=== PATIENT | male | born 1945 | race American Indian/Alaskan Native ===

== ENCOUNTER 2016-08-20 12:31 | Inpatient (IN) | payer MEDICARE ==
[2016-08-20 13:34] LABS: Bilirubin,Urine NEG (Negative); Blood,Urine LG (Negative); Ketones,Urine TR mg/dL (Negative); Leukocyte Esterase,Urine NEG (Negative); Mucus,Urine FEW /HPF; Nitrite,Urine NEG (Negative); Urobilinogen,Urine < 2.0 mg/dL (<2.0)
[2016-08-20 13:39] LABS: Basophils % (Auto) 0.3 % (0.0-1.8); Hematocrit 51.4 % (35.5-45.6); Mean Corpuscular HGB Conc 33 % (32-34); Mean Corpuscular Hemoglobin 28 pg (28-32); Mean Corpuscular Volume 83 fl (84-94); Red Blood Count 6.18 M/mm3 (3.65-5.03); Red Cell Distribution Width 15.9 % (13.2-15.2); White Blood Count 10.4 K/mm3 (4.5-11.0)
[2016-08-20 13:49] LABS: Platelet Count 136 K/mm3 (140-440)
[2016-08-20 14:02] LABS: B-Hydroxybutyrate 25.8 mg/dL (0.2-2.8); BUN/Creatinine Ratio 17.22; Calcium 8.7 mg/dL (8.4-10.2); Chloride 88.8 mmol/L (98-107); Potassium 4.8 mmol/L (3.6-5.0)
--- NOTE | 2016-08-20 14:07 | Emergency Department Report ---
HPI - General Chief Complaint: Hyperglycemia Time Seen by Provider: 08/20/16 13:46 - HPI HPI: Chief complaint: Altered mental status HPI: Patient is a 70-year-old male with a history of COPD, hypertension, insulin dependent diabetes was brought in by EMS. EMS was called by the family who stated that the patient has become more somnolent over the last several days and was incontinent of urine today. Patient is on 2 L of nasal cannula O2 at home states he's been using his nebulizer machine. Mode of arrival: [EMS] Source: [Patient] [old chart] and nursing notes Began: Several days ago Duration: Several days Context: Patient with a history of respiratory failure in the past Quality: Denies pain Severity: 0 out of 10 Improved with: Unable to assess Worsened with: Unable to assess Associated signs and symptoms: Patient denies pain, nausea, vomiting. ED Past Medical Hx - Past Medical History Hx Hypertension: Yes Hx Diabetes: Yes Hx Psychiatric Treatment: Yes (Depression) Hx COPD: Yes - Surgical History Additional Surgical History: unknown - Social History Smoking Status: Unknown if ever smoked Substance Use Type: None - Medications Home Medications: Home Medications Medication Instructions Recorded Confirmed Last Taken Type Ipratropium/Albuterol Sulfate 1 ampul IH Q6HRT #100 ampul.neb 01/16/14 08/20/16 Unknown Rx [Duoneb 0.5 mg-3 mg/3 ml Soln] Citalopram [celeXA] 10 mg PO QDAY 08/20/16 08/20/16 Unknown History Linagliptin [Tradjenta] 5 mg PO QDAY 08/20/16 08/20/16 Unknown History Losartan/Hydrochlorothiazide 12.5 - 100 mg PO DAILY 08/20/16 08/20/16 Unknown History [Losartan-Hctz 50-12.5 mg Tab] Potassium Chloride [Klor-Con 10] 10 meq PO DAILY 08/20/16 08/20/16 Unknown History ED Review of Systems ROS: Stated complaint: DIFFICULTY BREATHING Other details as noted in HPI Comment: Unobtainable due to pts medical conditions (altered mental status) Physical Exam - Physical Exam Vital Signs: Vital Signs 08/20/16 08/20/16 08/20/16 06:29 13:06 13:25 Pulse Rate Respiratory Rate Blood Pressure 169/95 115/65 O2 Sat by Pulse 94 Oximetry 08/20/16 13:30 Pulse Rate 109 H Respiratory 20 Rate Blood Pressure 100/70 O2 Sat by Pulse 94 Oximetry Physical Exam: GENERAL: The patient is an obese elderly man who is quite somnolent. Patient can be awakened with vigorous shaking and then answers questions appropriately until he falls back asleep. HEENT: Normocephalic. Atraumatic. Extraocular motions are intact. Patient has moist mucous membranes. NECK: Supple. No meningitic signs are noted. There is no adenopathy noted. CHEST/LUNGS: Diminished. There is no respiratory distress noted. HEART/CARDIOVASCULAR: Regular. There is no tachycardia. There is no gallop rub or murmur. ABDOMEN: Abdomen is soft, nontender. Patient has normal bowel sounds. There is no abdominal distention. SKIN: There is no rash. There is no edema. There is no diaphoresis. NEURO: The patient is lethargic but arousable and oriented to situation and name. The patient is cooperative. The patient moves all extremities. The patient has slow speech. MUSCULOSKELETAL: There is no tenderness or deformity. There is no evidence of acute injury. ED Course Vital Signs 08/20/16 08/20/16 08/20/16 06:29 13:06 13:25 Pulse Rate Respiratory Rate Blood Pressure 169/95 115/65 O2 Sat by Pulse 94 Oximetry 08/20/16 13:30 Pulse Rate 109 H Respiratory 20 Rate Blood Pressure 100/70 O2 Sat by Pulse 94 Oximetry - Reevaluation(s) Reevaluation #1: 08/20/16 14:54 Patient given 2 L of normal saline bolus and 10 units of regular insulin IV. Patient started on high-dose sliding scale insulin in consultation with Dr. Tariq as well as 250 mg of normal saline per hour. ED Medical Decision Making - Lab Data Result diagrams: 08/20/16 13:26 08/20/16 13:26 Laboratory Tests 08/20/16 08/20/16 08/20/16 13:00 13:26 13:32 VBG pH 7.309 L POC Glucose 435 H Ur Specific [place] 1.025 Urine Protein 100 mg/dl Urine Glucose (UA) >=500 Urine Ketones Tr Urine Blood Lg Laboratory Tests 08/20/16 13:26 Ketones 25.8 H ABG shows pH of 7.32 PA CO2 of 41 PaO2 of 69 - EKG Data -: EKG Interpreted by Me EKG shows normal: sinus rhythm Rate: tachycardia (114) - EKG Data When compared to previous EKG there are: previous EKG unavailable Interpretation: other (low-voltage QRS normal except for sinus tach) - Radiology Data interpreted by me: Chest x-ray shows no infiltrate or fluid. Patient is turned and is difficult to evaluate for mediastinal size. Critical care attestation.: If time is entered above; I have spent that time in minutes in the direct care of this critically ill patient, excluding procedure time. ED Disposition Clinical Impression: Hyperglycemia COPD (chronic obstructive pulmonary disease) Qualifiers: COPD type: unspecified COPD Qualified Code(s): J44.9 - Chronic obstructive pulmonary disease, unspecified Disposition: OP ADMITTED IP TO THIS HOSP Is pt being admited?: Yes Does the pt Need Aspirin: Yes Condition: Serious Instructions: Chronic Obstructive Pulmonary Disease (ED) Time of Disposition: 14:53 (admit to the hospitalist)
[2016-08-20] MEDS ORDERED: NACL 0.9% 1000 ML IV ONE ×2 (14:10→14:26)
[2016-08-20] MEDS ORDERED: D50W (25GM) IV PRN ×3 (14:41→19:53)
[2016-08-20] MEDS ORDERED: NACL 0.9% 1000 ML 1,000 ML IV ONE (14:44)
[2016-08-20] MEDS ORDERED: ASPIRIN PO ONE (15:05)
--- NOTE | 2016-08-20 15:10 | Cat Scan Report ---
FINAL REPORT EXAM: CT HEAD/BRAIN WO CON HISTORY: ams TECHNIQUE: CT of the head was performed without intravenous contrast. PRIORS: None. FINDINGS: The ventricles are normal in shape and position. The ventricles are nondilated. No intracranial hemorrhage, mass, mass effect, midline shift or evidence of acute ischemic infarct. The basilar cisterns are patent. Old lacunar infarct in the right logan radiata is seen. Mild areas of low-attenuation are seen in the periventricular and subcortical white matter. The paranasal sinuses are clear. Several scattered nonspecific scalp calcifications are seen. No soft tissue swelling. The calvarium is intact. The orbits are intact. The mastoid air cells are clear. IMPRESSION: 1. No acute intracranial abnormality. 2. 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 3. Mild findings of chronic microvascular ischemic disease.
--- NOTE | 2016-08-20 19:38 | Event Note ---
Date: 08/20/16 See H/p in reports DKA
[2016-08-20] MEDS ORDERED: PERCOCET 5/325 PO PRN (19:39)
[2016-08-20] MEDS ORDERED: DULCOLAX PR PRN (19:39)
[2016-08-20] MEDS ORDERED: MILK OF MAGNESIA PO PRN (19:39)
[2016-08-20] MEDS ORDERED: ZOFRAN IV PRN (19:39)
[2016-08-20] MEDS ORDERED: TYLENOL PO PRN (19:39)
[2016-08-20] MEDS ORDERED: NovoLIN R 100 UNITS in NACL 0.9% 99 ML IV SCH (20:00)
[2016-08-20] MEDS ORDERED: HYDROCHLOROTHIAZIDE PO SCH (20:00)
[2016-08-20] MEDS ORDERED: LOSARTAN PO SCH (20:00)
[2016-08-20] MEDS ORDERED: NON-FORMULARY (Potassium Chloride [Klor-Con 10] 10 MEQ) PO SCH (20:00)
[2016-08-20] MEDS ORDERED: DUONEB 0.5 MG-3 MG/3 ML SOLN IH SCH (20:00)
[2016-08-20] MEDS: DUONEB 0.5 MG-3 MG/3 ML SOLN IH SCH (20:38)
[2016-08-20 21:06] LABS: BUN/Creatinine Ratio 18.66; Calcium 8.5 mg/dL (8.4-10.2); Chloride 95.6 mmol/L (98-107)
[2016-08-20 21:07] LABS: Magnesium 2.1 mg/dL (1.7-2.3); Phosphorous 3.7 mg/dL (2.5-4.5)
[2016-08-20] MEDS ORDERED: NACL 0.9% 1000 ML 1,000 ML ONE (21:25)
[2016-08-20] MEDS: NovoLIN R 100 UNITS in NACL 0.9% 99 ML IV SCH ×2 (22:10→23:16)
[2016-08-20 22:44] LABS: Blood Urea Nitrogen 28 mg/dL (9-20); Calcium 8.4 mg/dL (8.4-10.2); Carbon Dioxide 24 mmol/L (22-30); Chloride 97.7 mmol/L (98-107); Glucose 426 mg/dL (75-100); Sodium 137 mmol/L (137-145)
[2016-08-20 22:49] LABS: Anion Gap 22 mmol/L
[2016-08-20] MEDS: PEPCID IV SCH (22:53)
[2016-08-20] MEDS: celeXA PO SCH (22:58)
[2016-08-21] MEDS: NovoLIN R 100 UNITS in NACL 0.9% 99 ML IV SCH ×7 (00:03→06:04)
[2016-08-21 00:19] LABS: Potassium 6.2 mmol/L (3.6-5.0)
[2016-08-21 01:19] LABS: ISTAT Base Excess -5; ISTAT HCO3 21.1; ISTAT PCO2 41.2 (35-45); ISTAT PH 7.318 (7.35-7.45); ISTAT PO2 69 (80-105); ISTAT SO2 92; ISTAT TCO2 22
[2016-08-21] MEDS: DUONEB 0.5 MG-3 MG/3 ML SOLN IH SCH ×4 (01:22→19:36)
[2016-08-21] MEDS: NACL 0.45% 1000 ML 1,000 ML IV SCH (02:24)
[2016-08-21 02:26] LABS: Blood Urea Nitrogen 26 mg/dL (9-20); Calcium 8.6 mg/dL (8.4-10.2); Carbon Dioxide 20 mmol/L (22-30); Chloride 100.9 mmol/L (98-107); Glucose 363 mg/dL (75-100); Sodium 140 mmol/L (137-145)
[2016-08-21 02:59] LABS: Anion Gap 24 mmol/L
[2016-08-21 03:00] LABS: Potassium 4.9 mmol/L (3.6-5.0)
[2016-08-21 05:10] LABS: Hematocrit 36.8 % (35.5-45.6); Hemoglobin 11.9 gm/dl (11.8-15.2); Mean Corpuscular HGB Conc 32 % (32-34); Mean Corpuscular Hemoglobin 27 pg (28-32); Mean Corpuscular Volume 85 fl (84-94); Red Blood Count 4.34 M/mm3 (3.65-5.03); Red Cell Distribution Width 16.1 % (13.2-15.2); White Blood Count 8.6 K/mm3 (4.5-11.0)
[2016-08-21 05:48] LABS: Blood Urea Nitrogen 23 mg/dL (9-20); Calcium 8.4 mg/dL (8.4-10.2); Carbon Dioxide 24 mmol/L (22-30); Chloride 101.6 mmol/L (98-107); Glucose 278 mg/dL (75-100); Potassium 4.9 mmol/L (3.6-5.0); Sodium 139 mmol/L (137-145)
[2016-08-21 06:00] LABS: Anion Gap 18 mmol/L
[2016-08-21 06:15] LABS: Platelet Count 97 K/mm3 (140-440)
[2016-08-21] MEDS ORDERED: D50W (25GM) IV PRN (09:00)
--- NOTE | 2016-08-21 09:50 | XRay Report ---
AP CHEST :08/20/16 12:31:00 CLINICAL: Altered mental status. COMPARISON:01/14/14 FINDINGS: Normal heart and pulmonary vasculature. Aortic ectasia is accentuated by rotation. The lungs are normally expanded and clear. The bones and soft tissues are normal. IMPRESSION: No acute cardiopulmonary process.
[2016-08-21 10:14] LABS: Anisocytosis 1+; Basophils % (Manual) 0 % (0.0-1.8); Blastocytes % (Manual) 0 %; Eosinophils % (Manual) 0 % (0.0-4.3); Hypochromasia 1+
[2016-08-21 10:15] LABS: Diff Status Complete; Platelet Estimate Consistent w Auto
--- NOTE | 2016-08-21 11:01 | Progress Note ---
Assessment and Plan Assessment and plan: 1. Acute COPD exacerbation. Continue bronchodilators start IV steroids for now. Continue O2 for supportive care. 2. DKA. Resolved. Patient will be transitioned from insulin drip to long acting insulin. Patient will be transferred to the floor. 3. Hypertension. Continue antihypertensive medications. 4. Thrombocytopenia. Etiology is unknown. Follow-up CBC and consider hematology consultation. 5. DVT prophylaxis. SCDs given the drum set up. History Interval history: 70-year-old male admitted for COPD exacerbation and DKA. No new issues overnight. Hospitalist Physical - Constitutional Vitals: Temp Pulse Resp BP Pulse Ox 97.9 F 94 H 18 110/62 93 08/21/16 08:00 08/21/16 08:21 08/21/16 08:21 08/21/16 08:00 08/21/16 08:08 General appearance: Present: no acute distress, well-nourished - EENT Eyes: Present: PERRL, EOM intact ENT: hearing intact, clear oral mucosa, dentition normal - Neck Neck: Present: supple, normal ROM - Respiratory Respiratory effort: normal Respiratory: bilateral: diminished, wheezing - Cardiovascular Rhythm: regular Heart Sounds: Present: S1 & S2. Absent: gallop, rub - Extremities Extremities: no ischemia, No edema, Full ROM - Abdominal General gastrointestinal: soft, non-tender, non-distended, normal bowel sounds - Integumentary Integumentary: Present: clear, warm, dry - Neurologic Neurologic: CNII-XII intact, moves all extremities Results - Labs CBC & Chem 7: 08/21/16 04:41 08/21/16 04:41 Labs: Laboratory Last Values WBC 8.6 K/mm3 (4.5-11.0) 08/21/16 04:41 RBC 4.34 M/mm3 (3.65-5.03) 08/21/16 04:41 Hgb 11.9 gm/dl (11.8-15.2) D 08/21/16 04:41 Hct 36.8 % (35.5-45.6) D 08/21/16 04:41 MCV 85 fl (84-94) 08/21/16 04:41 MCH 27 pg (28-32) L 08/21/16 04:41 MCHC 32 % (32-34) 08/21/16 04:41 RDW 16.1 % (13.2-15.2) H 08/21/16 04:41 Plt Count 97 K/mm3 (140-440) L 08/21/16 04:41 Lymph % (Auto) 10.2 % (13.4-35.0) L 08/20/16 13:26 [place] % (Auto) 11.7 % (0.0-7.3) H 08/20/16 13:26 Eos % (Auto) 0.0 % (0.0-4.3) 08/20/16 13:26 Baso % (Auto) 0.3 % (0.0-1.8) 08/20/16 13:26 Lymph # 1.1 K/mm3 (1.2-5.4) L 08/20/16 13:26 [place] # 1.2 K/mm3 (0.0-0.8) H 08/20/16 13:26 Eos # 0.0 K/mm3 (0.0-0.4) 08/20/16 13:26 Baso # 0.0 K/mm3 (0.0-0.1) 08/20/16 13:26 Add Manual Diff Complete 08/21/16 04:41 Total Counted 100 08/21/16 04:41 Seg Neutrophils % 77.8 % (40.0-70.0) H 08/20/16 13:26 Seg Neuts % (Manual) 54.0 % (40.0-70.0) 08/21/16 04:41 Band Neutrophils % 34.0 % 08/21/16 04:41 Lymphocytes % (Manual) 5.0 % (13.4-35.0) L 08/21/16 04:41 Reactive Lymphs % (Man) 0 % 08/21/16 04:41 Monocytes % (Manual) 7.0 % (0.0-7.3) 08/21/16 04:41 Eosinophils % (Manual) 0 % (0.0-4.3) 08/21/16 04:41 Basophils % (Manual) 0 % (0.0-1.8) 08/21/16 04:41 Metamyelocytes % 0 % 08/21/16 04:41 Myelocytes % 0 % 08/21/16 04:41 Promyelocytes % 0 % 08/21/16 04:41 Blast Cells % 0 % 08/21/16 04:41 Nucleated RBC % Not Reportable 08/21/16 04:41 Seg Neutrophils # 8.1 K/mm3 (1.8-7.7) H 08/20/16 13:26 Seg Neutrophils # Man 4.6 K/mm3 (1.8-7.7) 08/21/16 04:41 Band Neutrophils # 2.9 K/mm3 08/21/16 04:41 Lymphocytes # (Manual) 0.4 K/mm3 (1.2-5.4) L 08/21/16 04:41 Abs React Lymphs (Man) 0.0 K/mm3 08/21/16 04:41 Monocytes # (Manual) 0.6 K/mm3 (0.0-0.8) 08/21/16 04:41 Eosinophils # (Manual) 0.0 K/mm3 (0.0-0.4) 08/21/16 04:41 Basophils # (Manual) 0.0 K/mm3 (0.0-0.1) 08/21/16 04:41 Metamyelocytes # 0.0 K/mm3 08/21/16 04:41 Myelocytes # 0.0 K/mm3 08/21/16 04:41 Promyelocytes # 0.0 K/mm3 08/21/16 04:41 Blast Cells # 0.0 K/mm3 08/21/16 04:41 WBC Morphology Not Reportable 08/21/16 04:41 Hypersegmented Neuts Not Reportable 08/21/16 04:41 Hyposegmented Neuts Not Reportable 08/21/16 04:41 Hypogranular Neuts Not Reportable 08/21/16 04:41 Smudge Cells Not Reportable 08/21/16 04:41 Toxic Granulation Not Reportable 08/21/16 04:41 Toxic Vacuolation Not Reportable 08/21/16 04:41 Dohle Bodies Not Reportable 08/21/16 04:41 Pelger-Huet Anomaly Not Reportable 08/21/16 04:41 Gabi Rods Not Reportable 08/21/16 04:41 Platelet Estimate Consistent w auto 08/21/16 04:41 Clumped Platelets Not Reportable 08/21/16 04:41 Plt Clumps, EDTA Not Reportable 08/21/16 04:41 Large Platelets Not Reportable 08/21/16 04:41 Giant Platelets Not Reportable 08/21/16 04:41 Platelet Satelliting Not Reportable 08/21/16 04:41 Plt Morphology Comment Not Reportable 08/21/16 04:41 RBC Morphology Not Reportable 08/21/16 04:41 Dimorphic RBCs Not Reportable 08/21/16 04:41 Polychromasia Not Reportable 08/21/16 04:41 Hypochromasia 1+ 08/21/16 04:41 Poikilocytosis Not Reportable 08/21/16 04:41 Anisocytosis 1+ 08/21/16 04:41 Microcytosis Not Reportable 08/21/16 04:41 Macrocytosis Not Reportable 08/21/16 04:41 Spherocytes Not Reportable 08/21/16 04:41 Pappenheimer Bodies Not Reportable 08/21/16 04:41 Sickle Cells Not Reportable 08/21/16 04:41 Target Cells Not Reportable 08/21/16 04:41 Tear Drop Cells Not Reportable 08/21/16 04:41 Ovalocytes Not Reportable 08/21/16 04:41 Helmet Cells Not Reportable 08/21/16 04:41 [place] Bodies Not Reportable 08/21/16 04:41 [place] Rings Not Reportable 08/21/16 04:41 [place] Cells Not Reportable 08/21/16 04:41 Bite Cells Not Reportable 08/21/16 04:41 Crenated Cell Not Reportable 08/21/16 04:41 Elliptocytes Not Reportable 08/21/16 04:41 Acanthocytes (Spur) Not Reportable 08/21/16 04:41 Rouleaux Not Reportable 08/21/16 04:41 Hemoglobin C Crystals Not Reportable 08/21/16 04:41 Schistocytes Not Reportable 08/21/16 04:41 Malaria parasites Not Reportable 08/21/16 04:41 Arturo Bodies Not Reportable 08/21/16 04:41 Hem Pathologist Commnt No 08/21/16 04:41 POC ABG pH 7.318 (7.35-7.45) L 08/20/16 14:19 POC ABG pCO2 41.2 (35-45) 08/20/16 14:19 POC ABG pO2 69 (80-105) L 08/20/16 14:19 POC ABG HCO3 21.1 08/20/16 14:19 POC ABG Total CO2 22 08/20/16 14:19 POC ABG O2 Sat 92 08/20/16 14:19 POC ABG Base Excess -5 08/20/16 14:19 VBG pH 7.309 (7.320-7.420) L 08/20/16 13:26 FiO2 28 % 08/20/16 14:19 Sodium 139 mmol/L (137-145) 08/21/16 04:41 Potassium 4.9 mmol/L (3.6-5.0) 08/21/16 04:41 Chloride 101.6 mmol/L (98-107) 08/21/16 04:41 Carbon Dioxide 24 mmol/L (22-30) 08/21/16 04:41 Anion Gap 18 mmol/L 08/21/16 04:41 BUN 23 mg/dL (9-20) H 08/21/16 04:41 Creatinine 1.1 mg/dL (0.8-1.5) 08/21/16 04:41 Estimated GFR > 60 ml/min 08/21/16 04:41 BUN/Creatinine Ratio 20.90 % 08/21/16 04:41 Glucose 278 mg/dL (75-100) H 08/21/16 04:41 POC Glucose 230 (70-105) H 08/21/16 08:16 Hemoglobin A1c 14.8 % (4-6) H 08/20/16 20:11 Calcium 8.4 mg/dL (8.4-10.2) 08/21/16 04:41 Phosphorus 3.7 mg/dL (2.5-4.5) 08/20/16 20:11 Magnesium 2.1 mg/dL (1.7-2.3) 08/20/16 20:11 Urine Color Yellow (Yellow) 08/20/16 13:00 Urine Turbidity Clear (Clear) 08/20/16 13:00 Urine pH 5.0 (5.0-7.0) 08/20/16 13:00 Ur Specific [place] 1.025 (1.003-1.030) 08/20/16 13:00 Urine Protein 100 mg/dl mg/dL (Negative) 08/20/16 13:00 Urine Glucose (UA) >=500 mg/dL (Negative) 08/20/16 13:00 Urine Ketones Tr mg/dL (Negative) 08/20/16 13:00 Urine Blood Lg (Negative) 08/20/16 13:00 Urine Nitrite Neg (Negative) 08/20/16 13:00 Urine Bilirubin Neg (Negative) 08/20/16 13:00 Urine Urobilinogen < 2.0 mg/dL (<2.0) 08/20/16 13:00 Ur Leukocyte Esterase Neg (Negative) 08/20/16 13:00 Urine WBC (Auto) 2.0 /HPF (0.0-6.0) 08/20/16 13:00 Urine RBC (Auto) 4.0 /HPF (0.0-6.0) 08/20/16 13:00 Urine Mucus Few /HPF 08/20/16 13:00 Ketones 25.8 mg/dL (0.2-2.8) H 08/20/16 13:26
--- NOTE | 2016-08-21 13:23 | History and Physical Report ---
CHIEF COMPLAINT: Altered mental status. HISTORY OF PRESENT ILLNESS: A 70-year-old male with history of COPD, hypertension, insulin-dependent diabetes, who was brought by EMS for becoming very confused and somnolent over the last several days and was incontinent of urine today. The patient has 2 liters of nasal cannula oxygen at home and on nebulizer machine. No fever, no chills, no chest pain, no palpitations. PAST MEDICAL HISTORY: Significant for hypertension, diabetes, depression, COPD. PAST SURGICAL HISTORY: Unknown. SOCIAL HISTORY: Unknown. CURRENT MEDICATIONS: DuoNeb q.6 round the clock, Celexa 10 mg daily, Tradjenta 5 mg daily, losartan 100 mg daily, potassium 10 mEq daily. FAMILY HISTORY: Significant for hypertension and diabetes. REVIEW OF SYSTEMS: Significant for difficulty breathing, altered sensorium, not talking at all, lying in bed, apathy present. No fever, no chills. Urinary incontinence present. Otherwise, 14-point review of systems negative. PHYSICAL EXAMINATION: GENERAL: Elderly male who is quite somnolent. The patient can be awakened with shaking and sternal rubs. He then falls back into sleep. VITAL SIGNS: Significant for blood pressure 169/95, heart rate of 109, respiratory rate of 20, O2 sats of 94%. HEENT: Unremarkable. Pupils equal and reactive. NECK: Supple, no lymphadenopathy, no thyromegaly. LUNGS: Clear to auscultation and percussion. Good air entry. CARDIOVASCULAR: S1, S2 heard. No gallop, no murmur, no rub. Apical impulse in left fifth intercostal space and midclavicular line. ABDOMEN: Soft and benign. No hepatosplenomegaly. No guarding, no rigidity. Hernial orifices are normal. EXTREMITIES: Good pedal pulses. No pedal edema. CENTRAL NERVOUS SYSTEM: Decreased responsiveness. No focal deficits. LABORATORY DATA: White count is 10,400, H and H is 17.7 and 51.4, BUN and creatinine is 31 and 1.8, and glucose is 571. Urine specific gravity is 1.025. Chest x-ray shows no infiltrates or fluid. EKG shows sinus tachycardia, heart rate of 114. Potassium is 6.2, ketones are positive. ABG significant for pH of 7.31, pCO2 of 41, pO2 of 89, bicarbonate of 22, sodium 129, potassium of 4.8, chloride of 88.8, carbon dioxide of 19, BUN and creatinine of 31 and 1.8, glucose of 571, repeat glucose 422. Ketones were 25.8. ASSESSMENT AND PLAN: 1. Diabetic ketoacidosis protocol initiated. IV insulin initiated. The patient's diabetic ketoacidosis is mild to moderate, should be able to control his sugars in one-day time. Because of the insulin drip, the patient is being admitted to ICU. 2. Chronic obstructive pulmonary disease. Continue DuoNeb. 3. Hypertension. Continue losartan/hydrochlorothiazide. 4. Depression. Continue citalopram. 5. Deep venous thrombosis prophylaxis, Lovenox 40 mg subcutaneous daily. CRITICAL CARE STATEMENT: The high probability a clinically significant sudden or life-threatening deterioration of the cardiorespiratory system required my full and back attention, intervention and personal management: The aggregate critical care time was 32 minutes. The time was in addition to the time spent from the reported procedures, but includes the following, 1. Data review and interpretation. 2. The patient's assessment and monitoring of vital signs. 3. Documentation. 4. Medication orders and management. JOB# [id number] MIRANDA/NTS
[2016-08-21] MEDS: K-DUR PO SCH (13:35)
[2016-08-21] MEDS: COZAAR PO SCH (13:35)
[2016-08-21] MEDS: PEPCID IV SCH (13:35)
[2016-08-21] MEDS: HCTZ PO SCH (13:35)
[2016-08-21] MEDS: celeXA PO SCH (13:35)
--- NOTE | 2016-08-21 14:13 | Consultation ---
History of Present Illness Consult date: 08/21/16 Requesting physician: JOSIE MIRANDA Reason for consult: other (DKA; Hypoxemic Respiratory Failure; AMS) History of present illness: PULMONARY CONSULT NOTE (Full dictation # [id number]) please see dictated notes for full details Medications and Allergies Allergies Allergy/AdvReac Type Severity Reaction Status Date / Time No Known Allergies Allergy Unverified 01/14/14 21:52 Home Medications Medication Instructions Recorded Confirmed Last Taken Type Ipratropium/Albuterol Sulfate 1 ampul IH Q6HRT #100 ampul.neb 01/16/14 08/20/16 Unknown Rx [Duoneb 0.5 mg-3 mg/3 ml Soln] Citalopram [celeXA] 10 mg PO QDAY 08/20/16 08/20/16 Unknown History Linagliptin [Tradjenta] 5 mg PO QDAY 08/20/16 08/20/16 Unknown History Losartan/Hydrochlorothiazide 12.5 - 100 mg PO DAILY 08/20/16 08/20/16 Unknown History [Losartan-Hctz 50-12.5 mg Tab] Potassium Chloride [Klor-Con 10] 10 meq PO DAILY 08/20/16 08/20/16 Unknown History Active Meds: Active Medications Acetaminophen (Tylenol) 650 mg PO Q4H PRN PRN Reason: Pain MILD(1-3)/Fever >100.5/NELSON Albuterol/Ipratropium (Duoneb 0.5 Mg-3 Mg/3 Ml Soln) 1 ampul IH Q6HRT SIXTO Last Admin: 08/21/16 13:37 Dose: 1 ampul Bisacodyl (Dulcolax) 10 mg NM QDAY PRN PRN Reason: Constipation unrelieved by MOM Citalopram Hydrobromide (Celexa) 10 mg PO QDAY [facility] Last Admin: 08/20/16 22:58 Dose: 10 mg Dextrose (D50w (25gm)) 50 ml IV PRN PRN PRN Reason: Hypoglycemia Famotidine (Pepcid) 20 mg IV BID [facility] Last Admin: 08/20/16 22:53 Dose: 20 mg Hydrochlorothiazide (Hctz) 12.5 mg PO QDAY SIXTO Sodium Chloride (Nacl 0.45% 1000 Ml) 1,000 mls @ 75 mls/hr IV DIRECT SIXTO Last Admin: 08/21/16 02:24 Dose: 75 mls/hr Insulin Human Isoph/Insulin Regular (Novolin 70/30) 20 unit SUB-Q BIDDIAB SIXTO Insulin Human Regular (Novolin R) 0 units SUB-Q ACHS SIXTO PRN Reason: Protocol Losartan Potassium (Cozaar) 50 mg PO QDAY SIXTO Magnesium Hydroxide (Milk Of Magnesia) 30 ml PO Q4H PRN PRN Reason: Constipation Methylprednisolone Sodium Succinate (Solu-Medrol) 40 mg IV Q12HR SIXTO Ondansetron HCl (Zofran) 4 mg IV Q8H PRN PRN Reason: N/V unrelieved by Reglan Oxycodone/Acetaminophen (Percocet 5/325) 1 tab PO Q6H PRN PRN Reason: Pain, Moderate (4-6) Potassium Chloride (K-Dur) 10 meq PO QDAY [facility] Physical Examination Vital signs: Vital Signs BP 169/95 08/20/16 06:29 Results - Laboratory Findings CBC and BMP: 08/21/16 04:41 08/21/16 04:41 ABG POC ABG pH 7.318 (7.35-7.45) L 08/20/16 14:19 POC ABG pCO2 41.2 (35-45) 08/20/16 14:19 POC ABG pO2 69 (80-105) L 08/20/16 14:19 POC ABG HCO3 21.1 08/20/16 14:19 POC ABG Total CO2 22 08/20/16 14:19 POC ABG O2 Sat 92 08/20/16 14:19 Abnormal lab findings: Abnormal Labs 08/20/16 08/20/16 08/20/16 17:55 20:11 20:11 MCH RDW Plt Count Lymphocytes % (Manual) Lymphocytes # (Manual) Sodium 136 L D Potassium Chloride 95.6 L Carbon Dioxide BUN 28 H Glucose 430 H POC Glucose 472 H Hemoglobin A1c 14.8 H 08/20/16 08/20/16 08/20/16 20:53 21:59 22:04 MCH RDW Plt Count Lymphocytes % (Manual) Lymphocytes # (Manual) Sodium Potassium 6.2 H* D Chloride 97.7 L Carbon Dioxide BUN 28 H Glucose 426 H POC Glucose 374 H 368 H Hemoglobin A1c 08/20/16 08/21/16 08/21/16 23:04 00:01 00:44 MCH RDW Plt Count Lymphocytes % (Manual) Lymphocytes # (Manual) Sodium Potassium Chloride Carbon Dioxide 20 L BUN 26 H Glucose 363 H POC Glucose 313 H 308 H Hemoglobin A1c 08/21/16 08/21/16 08/21/16 04:41 04:41 08:16 MCH 27 L RDW 16.1 H Plt Count 97 L Lymphocytes % (Manual) 5.0 L Lymphocytes # (Manual) 0.4 L Sodium Potassium Chloride Carbon Dioxide BUN 23 H Glucose 278 H POC Glucose 230 H Hemoglobin A1c
[2016-08-21 15:06] LABS: ISTAT Base Excess 0; ISTAT HCO3 26.1; ISTAT PCO2 53.7 (35-45); ISTAT PH 7.294 (7.35-7.45); ISTAT PO2 76 (80-105); ISTAT SO2 93; ISTAT TCO2 28
[2016-08-21] MEDS: PULMICORT IH SCH (19:36)
[2016-08-21] MEDS: BROVANA NEBU IH SCH (19:36)
--- NOTE | 2016-08-21 22:42 | Consultation ---
CONSULTING PHYSICIAN: Eddie Tariq MD REASON FOR CONSULTATION: Diabetic ketoacidosis, need for IV insulin therapy as well as hypoxemic respiratory failure. CHIEF COMPLAINT AND HISTORY OF PRESENT ILLNESS: The patient is a 70-year-old -[place] male with past medical history significant amongst other things both for a diagnosis of COPD, obstructive sleep apnea, but also diabetes, came into the Emergency Room complaining of just not feeling well for the past few days. Family mentioned that he was incontinent of urine on the day of presentation. He is on home oxygen. He also states he is on a CPAP machine, but in retrospect he is probably talking about his oxygen concentrator because he states his settings are 2 and he is on 2 liters nasal cannula at home. He came to the Emergency Room. In the Emergency Room, he was evaluated and found amongst other things to be in diabetic ketoacidosis. ICU admission was requested for IV insulin therapy. When I stopped by to see him, he was a little bit better he tells me, but still feeling bad. IV insulin was going at that time. He denied any nausea, vomiting, or overt aspiration. He denied any fevers or chills. He denied any cough or expectoration. He had been compliant with his medications as far as he knows. Denied any chest pain. Denied any new onset of leg pain or swelling. That really is as much of the history of presentation as I have. PAST MEDICAL HISTORY: Again, chronic obstructive lung disease, hypertension, insulin-dependent diabetes, likely obstructive sleep apnea. He is obese, morbidly so. PAST SURGICAL HISTORY: Unknown. MEDICATIONS: He was on at the time I stopped by to see him, according to the medication administration record included the following: He was on Tylenol 650 mg p.o. q. 4 hours p.r.n. mild pain, DuoNeb treatments nebulized q. 6 hours, Celexa 10 mg p.o. daily, p.r.n. D50, Pepcid 20 mg IV b.i.d., hydrochlorothiazide 12.5 mg p.o. daily, 70/30 insulin was about to be started. He was on IV insulin drip. Cozaar 50 mg p.o. daily, Solu-Medrol 40 mg IV q. 12 hours, p.r.n. milk of magnesia, potassium chloride 10 mEq p.o. daily, and sodium chloride drip at 75 mL per hour. ALLERGIES: No known drug allergies. DIET: Obese gentleman. Denies acute weight loss or gain in the preceding few weeks to months. FAMILY AND SOCIAL HISTORY: Lives in the community. He gives me a 10+ pack year tobacco smoking history, tells me he has quit smoking about 10 years ago, used to smoke over a pack a day. Denies alcohol or illicit drug use or abuse. Family history otherwise unknown. REVIEW OF SYSTEMS: No loss of consciousness. No new onset seizures. No new onset focal weakness. No gross hematochezia or melena. No gross hematuria or dysuria. No hematemesis. No hemoptysis. He had a cough. No palpitations. Complete review of systems obtained as best as I could. Pertinent positives and/or negatives as in the body of history above, otherwise they are noncontributory. PHYSICAL EXAMINATION: VITAL SIGNS: At presentation, first temperature I see is afebrile at 97.9, pulse was 109 at presentation, respiratory rate was 24, blood pressure was 169/95, oxygen sats 94%, inspired oxygen concentration was not recorded. HEENT: Pupils are equal, round, about 2 mm, sluggishly reactive to light. Extraocular muscle movements appeared intact. Oropharynx is a Mallampati #4 oropharynx with some oropharyngeal exudates, no erythema. Grossly, no palpable lymph nodes in the supraclavicular or submandibular lymph node chains. LUNGS: Auscultation of both lung paula significant for bilateral rales, made worse with coughing and faint occasional expiratory wheeze. HEART: Heart sounds 1 and 2 are heard, regular rate and rhythm at the time of my evaluation. ABDOMEN: Soft, full, bowel sounds are positive, nontender. EXTREMITIES: Without overt digital clubbing, cyanosis, or pedal edema. NEUROLOGIC: The exam was grossly nonfocal. He was pretty lethargic, falling asleep during the interview. LABORATORY DATA: From my review are as follows: Admission white cell count 10,400 with a hemoglobin of 17.0, hematocrit of 51.4, and platelets 136. Arterial blood gas showed a pH of 7.32, pCO2 of 41, pO2 of 69 that was on 2 liters nasal cannula. Serum sodium was 129, potassium 4.8, chloride 89, bicarbonate 19, BUN was 31, creatinine was 1.8, and glucose was 571. Urinalysis, large blood, negative for nitrites and leukocyte esterase. Serum ketones elevated at 25.8. BUN is down to 23, creatinine is 1.1. The gap looks like it is closing. Radiographic studies have been done, unfortunately I am unable to pull up the imaging. I have reviewed the radiologist's interpretation though. A chest x-ray was done as well as a CT scan of the head. 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 ASSESSMENT AND PLAN: We have an elderly gentleman who is in with diabetic ketoacidosis, but obviously has multiple comorbidities. From a respiratory standpoint, I will repeat the arterial blood gas, I am almost certain he does have obstructive sleep apnea as evidenced by my clinical evaluation with some apneas and falling asleep during my discussion with him. Supplemental oxygen will be continued. Bronchodilators will be continued. I will add long acting bronchodilators also and inhaled corticosteroids, but I will hold on systemic steroid therapy. Bilevel positive air pressure ventilation therapy will be offered at bedtime/while asleep and recommendations will be made for a sleep study once he has been discharged. From a cardiovascular standpoint, blood pressure is well controlled now, hemodynamically stable, no changes there. The initial acute coronary syndrome workup actually one was not done, I will order a set of cardiac enzymes to make sure that we do not have a cardiac event that pushed him into diabetic ketoacidosis. Otherwise, we will follow him clinically, and I will review his 12-lead EKG if that was done, if none was done, I will be ordering a 12-lead EKG on him. From an infectious disease standpoint, no signs and symptoms of overwhelming sepsis. No acute indication for anti-infective therapy. We will follow him clinically. From a GI and nutritional standpoint, oral nutrition will be the feeding modality of choice. He remains n.p.o. while on the DKA protocol. He is appropriately on GI prophylaxis. Aspiration precautions will be maintained. From a renal standpoint, no major electrolyte abnormalities. Serum creatinine is improving. We will follow him clinically. Inputs and outputs will also be followed. 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 CT of the brain is negative, need to do ABG to rule out hypercapnia as the cause of his somnolence. At this point, we will follow him clinically otherwise. From a general and hospital healthcare maintenance standpoint, he is on GI prophylaxis. He will be placed on DVT prophylaxis. Flu and pneumonia vaccination will be per protocol. I do note that his platelet counts have dropped without obvious administration of any heparinoids. We will continue with mechanical DVT prophylaxis and hold on heparin therapy at this point. Thank you very much for the consult Dr. Tariq. We will follow along and make further recommendations. Once tony is off the IV insulin, he will be transferred to the medical floor. At this point, I spent about 30-35 minutes of critical care time without overlap excluding any procedural time that may be necessary. JOB# [id number] TAVO/SHARMIN
[2016-08-22] MEDS: PEPCID IV SCH ×3 (00:28→22:51)
--- NOTE | 2016-08-22 01:37 | Admit Criteria Form ---
Admission Criteria Documentation: DIABETES Clinical Indications for Admission to Inpatient Care (Place 'X' for any and all applicable criteria): Admission is indicated by presence of ALL (if I & II) or ANY ONE (if III or IV) of the following (1)(2)(3)(4): [ X]I. Diabetes is uncontrolled as indicated by ANY ONE of the following: [ ]a) Diabetic ketoacidosis as indicated by ALL of the following (8): [ ]i) Hyperglycemia (eg, plasma glucose greater than 200 mg/ dL (11.1 mmol/L)) [ ]ii) Acidosis (eg, arterial pH less than 7.30, serum bicarbonate level less than 15 mEq/L (mmol/L)) [ ]iii) Moderate ketonuria or ketonemia [ ]b) Hyperglycemic hyperosmolar state as indicated by ALL of the following(9)(10): [ ]i) Neurologic dysfunction (eg, stupor, coma, hemiparesis , seizure)(13) [ ]ii) Plasma glucose greater than 600 mg/dL (33.3 mmol/L) [ ]iii) Serum osmolality greater than 320 mOsm/kg (mmol/kg) [ X]c) Severe signs or symptoms secondary to hyperglycemia indicated by ANY ONE of the following: [ X]i) Altered mental status(10) [ ]ii) Significant hypovolemia or dehydration [ ]iii) Intractable nausea or vomiting [ ]iv) Unexplained fever or severe infection [ ]v) Severe electrolyte abnormality (eg, hypokalemia, hyperkalemia, hypernatremia) [X ]II. Management at other levels of care (Also use Diabetes: Observation Care as appropriate) is not feasible because of ANY ONE of the following: [ X]a) Condition was not adequately corrected with treatment at other levels of care. [ ]b) Treatment at other levels of care is not appropriate because of condition severity (eg, hyperosmolar coma). [ ]III. Contraindications and/or Inappropriate clinical situations for Observational Care in patients with Diabetes, when ANY ONE of the following is required: [ ]a) Patient require specific diagnostic workup or therapeutic intervention 22 [ ]b) Patient with abnormal vital signs or altered mental status 23 [ ]IV. General contraindications and/or Inappropriate clinical situations for Observational Care in patients with Diabetes, when ANY ONE of the following is required: [ ]a) Prediction of prolongation of LOS based on ANY ONE of the following may be considered as a contraindication for observational care 2, 3, 4, 5, 6, 7, 8, 9, 10, 11 [ ]i) Age > 65 yrs. [ ]ii) Patient arriving by ambulance [ ]iii) Patient with high acuity [ ]iv) Patient requiring vital sign monitoring [ ]v) Patient on IV medication [ ]b) Systolic blood pressures 180mmHg 3,12 [ ]c) Patient with altered mental status including delirium and other alteration of consciousness, (3) [ ]d) Patient whose discharge disposition will be to a senior care home or rehabilitation home should not be managed in Emergency Department Observation Unit. CMS rule requires 3 days hospital stay before such placement.3,13 [ ]e) Patient with failure to thrive due to broad array of etiologies 3,16,17 [ ]f) Inability to ambulate 3,14 Extended stay beyond goal length of stay may be needed for(3)(20): [ ]a) Treatment of precipitating causes [ ]b) Development of hypoglycemia [ ]c) Complications of treatment [ ]d) Complications of decompensated diabetes (eg, acute gastric dilatation, persistent metabolic or neurologic derangement) [ ]e) Active Comorbidities [ ]f) Older patients( 65 years or older) The original [employer] content created by [employer] has been revised. The portions of the content which have been revised are identified through the use of italic text or in bold,and [facility] has neither reviewed nor approved the modified material. All other unmodified content is copyright [employer]. Please see references footnoted in the original [facility] edition 2016 Admission Criteria Met: Yes
[2016-08-22] MEDS: DUONEB 0.5 MG-3 MG/3 ML SOLN IH SCH ×4 (02:31→19:54)
[2016-08-22] MEDS: NACL 0.45% 1000 ML 1,000 ML IV SCH (04:09)
[2016-08-22] MEDS: BROVANA NEBU IH SCH ×2 (07:45→19:54)
[2016-08-22] MEDS: PULMICORT IH SCH ×2 (07:45→19:54)
[2016-08-22] MEDS: celeXA PO SCH (11:17)
[2016-08-22] MEDS: K-DUR PO SCH (11:19)
[2016-08-22] MEDS: COZAAR PO SCH (11:19)
[2016-08-22] MEDS: HCTZ PO SCH (11:20)
--- NOTE | 2016-08-22 12:03 | Progress Note ---
Assessment and Plan Assessment and plan: 1. Acute COPD exacerbation. Continue bronchodilators start IV steroids for now. Continue O2 for supportive care. 2. DKA. Resolved. Patient will be transitioned from insulin drip to long acting insulin. Patient will be transferred to the floor. 3. Type 2 diabetes mellitus, uncontrolled. We will increase insulin to 30 units twice a day. Etiology likely secondary to steroids. DC IV Solu-Medrol and start by mouth prednisone. Patient will need prednisone taper at discharge. 4. Hypertension. Continue antihypertensive medications. 5. Thrombocytopenia. Etiology is unknown. Follow-up CBC and consider hematology consultation. 6. DVT prophylaxis. SCDs given the drum set up. History Interval history: 70-year-old male admitted for COPD exacerbation and DKA. No new issues overnight. Hospitalist Physical - Constitutional Vitals: Temp Pulse Resp BP Pulse Ox 98.3 F 104 H 20 92/57 94 08/22/16 08:29 08/22/16 08:29 08/22/16 08:29 08/22/16 11:19 08/22/16 09:35 General appearance: Present: no acute distress, well-nourished - EENT Eyes: Present: PERRL, EOM intact ENT: hearing intact, clear oral mucosa, dentition normal - Neck Neck: Present: supple, normal ROM - Respiratory Respiratory effort: normal Respiratory: bilateral: diminished, wheezing (mild) - Cardiovascular Rhythm: regular Heart Sounds: Present: S1 & S2. Absent: gallop, rub - Extremities Extremities: no ischemia, No edema, Full ROM - Abdominal General gastrointestinal: soft, non-tender, non-distended, normal bowel sounds - Integumentary Integumentary: Present: clear, warm, dry - Neurologic Neurologic: CNII-XII intact, moves all extremities Results - Labs CBC & Chem 7: 08/21/16 04:41 08/21/16 04:41 Labs: Laboratory Last Values WBC 8.6 K/mm3 (4.5-11.0) 08/21/16 04:41 RBC 4.34 M/mm3 (3.65-5.03) 08/21/16 04:41 Hgb 11.9 gm/dl (11.8-15.2) D 08/21/16 04:41 Hct 36.8 % (35.5-45.6) D 08/21/16 04:41 MCV 85 fl (84-94) 08/21/16 04:41 MCH 27 pg (28-32) L 08/21/16 04:41 MCHC 32 % (32-34) 08/21/16 04:41 RDW 16.1 % (13.2-15.2) H 08/21/16 04:41 Plt Count 97 K/mm3 (140-440) L 08/21/16 04:41 Lymph % (Auto) 10.2 % (13.4-35.0) L 08/20/16 13:26 Brooke % (Auto) 11.7 % (0.0-7.3) H 08/20/16 13:26 Eos % (Auto) 0.0 % (0.0-4.3) 08/20/16 13:26 Baso % (Auto) 0.3 % (0.0-1.8) 08/20/16 13:26 Lymph # 1.1 K/mm3 (1.2-5.4) L 08/20/16 13:26 Brooke # 1.2 K/mm3 (0.0-0.8) H 08/20/16 13:26 Eos # 0.0 K/mm3 (0.0-0.4) 08/20/16 13:26 Baso # 0.0 K/mm3 (0.0-0.1) 08/20/16 13:26 Add Manual Diff Complete 08/21/16 04:41 Total Counted 100 08/21/16 04:41 Seg Neutrophils % 77.8 % (40.0-70.0) H 08/20/16 13:26 Seg Neuts % (Manual) 54.0 % (40.0-70.0) 08/21/16 04:41 Band Neutrophils % 34.0 % 08/21/16 04:41 Lymphocytes % (Manual) 5.0 % (13.4-35.0) L 08/21/16 04:41 Reactive Lymphs % (Man) 0 % 08/21/16 04:41 Monocytes % (Manual) 7.0 % (0.0-7.3) 08/21/16 04:41 Eosinophils % (Manual) 0 % (0.0-4.3) 08/21/16 04:41 Basophils % (Manual) 0 % (0.0-1.8) 08/21/16 04:41 Metamyelocytes % 0 % 08/21/16 04:41 Myelocytes % 0 % 08/21/16 04:41 Promyelocytes % 0 % 08/21/16 04:41 Blast Cells % 0 % 08/21/16 04:41 Nucleated RBC % Not Reportable 08/21/16 04:41 Seg Neutrophils # 8.1 K/mm3 (1.8-7.7) H 08/20/16 13:26 Seg Neutrophils # Man 4.6 K/mm3 (1.8-7.7) 08/21/16 04:41 Band Neutrophils # 2.9 K/mm3 08/21/16 04:41 Lymphocytes # (Manual) 0.4 K/mm3 (1.2-5.4) L 08/21/16 04:41 Abs React Lymphs (Man) 0.0 K/mm3 08/21/16 04:41 Monocytes # (Manual) 0.6 K/mm3 (0.0-0.8) 08/21/16 04:41 Eosinophils # (Manual) 0.0 K/mm3 (0.0-0.4) 08/21/16 04:41 Basophils # (Manual) 0.0 K/mm3 (0.0-0.1) 08/21/16 04:41 Metamyelocytes # 0.0 K/mm3 08/21/16 04:41 Myelocytes # 0.0 K/mm3 08/21/16 04:41 Promyelocytes # 0.0 K/mm3 08/21/16 04:41 Blast Cells # 0.0 K/mm3 08/21/16 04:41 WBC Morphology Not Reportable 08/21/16 04:41 Hypersegmented Neuts Not Reportable 08/21/16 04:41 Hyposegmented Neuts Not Reportable 08/21/16 04:41 Hypogranular Neuts Not Reportable 08/21/16 04:41 Smudge Cells Not Reportable 08/21/16 04:41 Toxic Granulation Not Reportable 08/21/16 04:41 Toxic Vacuolation Not Reportable 08/21/16 04:41 Dohle Bodies Not Reportable 08/21/16 04:41 Pelger-Huet Anomaly Not Reportable 08/21/16 04:41 Gabi Rods Not Reportable 08/21/16 04:41 Platelet Estimate Consistent w auto 08/21/16 04:41 Clumped Platelets Not Reportable 08/21/16 04:41 Plt Clumps, EDTA Not Reportable 08/21/16 04:41 Large Platelets Not Reportable 08/21/16 04:41 Giant Platelets Not Reportable 08/21/16 04:41 Platelet Satelliting Not Reportable 08/21/16 04:41 Plt Morphology Comment Not Reportable 08/21/16 04:41 RBC Morphology Not Reportable 08/21/16 04:41 Dimorphic RBCs Not Reportable 08/21/16 04:41 Polychromasia Not Reportable 08/21/16 04:41 Hypochromasia 1+ 08/21/16 04:41 Poikilocytosis Not Reportable 08/21/16 04:41 Anisocytosis 1+ 08/21/16 04:41 Microcytosis Not Reportable 08/21/16 04:41 Macrocytosis Not Reportable 08/21/16 04:41 Spherocytes Not Reportable 08/21/16 04:41 Pappenheimer Bodies Not Reportable 08/21/16 04:41 Sickle Cells Not Reportable 08/21/16 04:41 Target Cells Not Reportable 08/21/16 04:41 Tear Drop Cells Not Reportable 08/21/16 04:41 Ovalocytes Not Reportable 08/21/16 04:41 Helmet Cells Not Reportable 08/21/16 04:41 Moe-Hortense Bodies Not Reportable 08/21/16 04:41 Victoria Rings Not Reportable 08/21/16 04:41 [place] Cells Not Reportable 08/21/16 04:41 Bite Cells Not Reportable 08/21/16 04:41 Crenated Cell Not Reportable 08/21/16 04:41 Elliptocytes Not Reportable 08/21/16 04:41 Acanthocytes (Spur) Not Reportable 08/21/16 04:41 Rouleaux Not Reportable 08/21/16 04:41 Hemoglobin C Crystals Not Reportable 08/21/16 04:41 Schistocytes Not Reportable 08/21/16 04:41 Malaria parasites Not Reportable 08/21/16 04:41 Arturo Bodies Not Reportable 08/21/16 04:41 Hem Pathologist Commnt No 08/21/16 04:41 POC ABG pH 7.294 (7.35-7.45) L 08/21/16 15:00 POC ABG pCO2 53.7 (35-45) H 08/21/16 15:00 POC ABG pO2 76 (80-105) L 08/21/16 15:00 POC ABG HCO3 26.1 08/21/16 15:00 POC ABG Total CO2 28 08/21/16 15:00 POC ABG O2 Sat 93 08/21/16 15:00 POC ABG Base Excess 0 08/21/16 15:00 VBG pH 7.309 (7.320-7.420) L 08/20/16 13:26 FiO2 28 % 08/21/16 15:00 Sodium 139 mmol/L (137-145) 08/21/16 04:41 Potassium 4.9 mmol/L (3.6-5.0) 08/21/16 04:41 Chloride 101.6 mmol/L (98-107) 08/21/16 04:41 Carbon Dioxide 24 mmol/L (22-30) 08/21/16 04:41 Anion Gap 18 mmol/L 08/21/16 04:41 BUN 23 mg/dL (9-20) H 08/21/16 04:41 Creatinine 1.1 mg/dL (0.8-1.5) 08/21/16 04:41 Estimated GFR > 60 ml/min 08/21/16 04:41 BUN/Creatinine Ratio 20.90 % 08/21/16 04:41 Glucose 278 mg/dL (75-100) H 08/21/16 04:41 POC Glucose 383 (70-105) H 08/22/16 11:24 Hemoglobin A1c 14.8 % (4-6) H 08/20/16 20:11 Calcium 8.4 mg/dL (8.4-10.2) 08/21/16 04:41 Phosphorus 3.7 mg/dL (2.5-4.5) 08/20/16 20:11 Magnesium 2.1 mg/dL (1.7-2.3) 08/20/16 20:11 Urine Color Yellow (Yellow) 08/20/16 13:00 Urine Turbidity Clear (Clear) 08/20/16 13:00 Urine pH 5.0 (5.0-7.0) 08/20/16 13:00 Ur Specific [place] 1.025 (1.003-1.030) 08/20/16 13:00 Urine Protein 100 mg/dl mg/dL (Negative) 08/20/16 13:00 Urine Glucose (UA) >=500 mg/dL (Negative) 08/20/16 13:00 Urine Ketones Tr mg/dL (Negative) 08/20/16 13:00 Urine Blood Lg (Negative) 08/20/16 13:00 Urine Nitrite Neg (Negative) 08/20/16 13:00 Urine Bilirubin Neg (Negative) 08/20/16 13:00 Urine Urobilinogen < 2.0 mg/dL (<2.0) 08/20/16 13:00 Ur Leukocyte Esterase Neg (Negative) 08/20/16 13:00 Urine WBC (Auto) 2.0 /HPF (0.0-6.0) 08/20/16 13:00 Urine RBC (Auto) 4.0 /HPF (0.0-6.0) 08/20/16 13:00 Urine Mucus Few /HPF 08/20/16 13:00 Ketones 25.8 mg/dL (0.2-2.8) H 08/20/16 13:26
--- NOTE | 2016-08-22 22:33 | Progress Note ---
Assessment and Plan Patient resting on 3 litres O2 at this time. No acute respiratory distress. O2 satuaration 95%. - Patient Problems (1) Chronic obstructive asthma with exacerbation Current Visit: No Status: Acute Plan to address problem: BIPAP and O2 supplementation. Albuterol/ atrovent aerosol treatments. Continue prednisone. (2) Acute and chronic respiratory failure ([id number]) Current Visit: Yes Status: Acute Plan to address problem: BIPAP16/6, rate 16, FIO2 30% Supplemental O2 3 litres,if patient is not on BIPAP. Continue albuterol/atrovent aerosol treatments Continue Prednisone. SCDs Famotadine. (3) Sleep apnea Current Visit: Yes Status: Acute Plan to address problem: Possible sleep apnea. Patient obese,sleeping most of the time. Recommend sleep study as out patient. Subjective Date of service: 08/22/16 Interval history: Patient resting on 3 litres O2 at this time. No acute respiratory distress. O2 satuaration 95%. Objective Vital Signs - 12hr 08/22/16 08/22/16 08/22/16 11:19 14:38 14:45 Temperature Pulse Rate [ 98 H 92 H Anterior Bilateral Throughout] Pulse Rate [ Right Radial] Respiratory Rate Respiratory 21 20 Rate [Anterior Bilateral Throughout] Blood Pressure 92/57 Blood Pressure [Left Arm] O2 Sat by Pulse Oximetry 08/22/16 08/22/16 08/22/16 16:23 19:56 20:18 Temperature 100.0 F H Pulse Rate [ Anterior Bilateral Throughout] Pulse Rate [ 108 H Right Radial] Respiratory 24 Rate Respiratory Rate [Anterior Bilateral Throughout] Blood Pressure Blood Pressure 98/51 [Left Arm] O2 Sat by Pulse 95 95 Oximetry Constitutional: no acute distress, asleep Eyes: non-icteric Neck: supple, no lymphadenopathy Ascultation: Bilateral: diminished breath sounds Cardiovascular: regular rate and rhythm Gastrointestinal: normoactive bowel sounds, soft, non-tender Integumentary: normal Extremities: no cyanosis, no edema Neurologic: non-focal exam, pupils equal and round, CN II-XII normal Psychiatric: depressed CBC and BMP: 08/21/16 04:41 08/21/16 04:41 ABG, PT/INR, D-dimer: ABG POC ABG pH 7.294 (7.35-7.45) L 08/21/16 15:00 POC ABG pCO2 53.7 (35-45) H 08/21/16 15:00 POC ABG pO2 76 (80-105) L 08/21/16 15:00 POC ABG HCO3 26.1 08/21/16 15:00 POC ABG Total CO2 28 08/21/16 15:00 POC ABG O2 Sat 93 08/21/16 15:00 Abnormal lab findings: Abnormal Labs 08/20/16 08/20/16 08/20/16 17:55 20:11 20:11 MCH RDW Plt Count Lymphocytes % (Manual) Lymphocytes # (Manual) POC ABG pH POC ABG pCO2 POC ABG pO2 Sodium 136 L D Potassium Chloride 95.6 L Carbon Dioxide BUN 28 H Glucose 430 H POC Glucose 472 H Hemoglobin A1c 14.8 H 08/20/16 08/20/16 08/20/16 20:53 21:59 22:04 MCH RDW Plt Count Lymphocytes % (Manual) Lymphocytes # (Manual) POC ABG pH POC ABG pCO2 POC ABG pO2 Sodium Potassium 6.2 H* D Chloride 97.7 L Carbon Dioxide BUN 28 H Glucose 426 H POC Glucose 374 H 368 H Hemoglobin A1c 08/20/16 08/21/16 08/21/16 23:04 00:01 00:44 MCH RDW Plt Count Lymphocytes % (Manual) Lymphocytes # (Manual) POC ABG pH POC ABG pCO2 POC ABG pO2 Sodium Potassium Chloride Carbon Dioxide 20 L BUN 26 H Glucose 363 H POC Glucose 313 H 308 H Hemoglobin A1c 08/21/16 08/21/16 08/21/16 00:59 02:08 03:07 MCH RDW Plt Count Lymphocytes % (Manual) Lymphocytes # (Manual) POC ABG pH POC ABG pCO2 POC ABG pO2 Sodium Potassium Chloride Carbon Dioxide BUN Glucose POC Glucose 276 H 259 H 238 H Hemoglobin A1c 08/21/16 08/21/16 08/21/16 04:08 04:41 04:41 MCH 27 L RDW 16.1 H Plt Count 97 L Lymphocytes % (Manual) 5.0 L Lymphocytes # (Manual) 0.4 L POC ABG pH POC ABG pCO2 POC ABG pO2 Sodium Potassium Chloride Carbon Dioxide BUN 23 H Glucose 278 H POC Glucose 210 H Hemoglobin A1c 08/21/16 08/21/16 08/21/16 05:00 06:03 07:30 MCH RDW Plt Count Lymphocytes % (Manual) Lymphocytes # (Manual) POC ABG pH POC ABG pCO2 POC ABG pO2 Sodium Potassium Chloride Carbon Dioxide BUN Glucose POC Glucose 211 H 208 H 222 H Hemoglobin A1c 08/21/16 08/21/16 08/21/16 08:16 09:22 09:58 MCH RDW Plt Count Lymphocytes % (Manual) Lymphocytes # (Manual) POC ABG pH POC ABG pCO2 POC ABG pO2 Sodium Potassium Chloride Carbon Dioxide BUN Glucose POC Glucose 230 H 231 H 278 H Hemoglobin A1c 08/21/16 08/21/16 08/21/16 11:04 12:05 13:34 MCH RDW Plt Count Lymphocytes % (Manual) Lymphocytes # (Manual) POC ABG pH POC ABG pCO2 POC ABG pO2 Sodium Potassium Chloride Carbon Dioxide BUN Glucose POC Glucose 257 H 281 H 252 H Hemoglobin A1c 08/21/16 08/21/16 08/21/16 15:00 15:31 22:08 MCH RDW Plt Count Lymphocytes % (Manual) Lymphocytes # (Manual) POC ABG pH 7.294 L POC ABG pCO2 53.7 H POC ABG pO2 76 L Sodium Potassium Chloride Carbon Dioxide BUN Glucose POC Glucose 266 H 233 H Hemoglobin A1c 08/22/16 08/22/16 08/22/16 06:51 11:24 16:58 MCH RDW Plt Count Lymphocytes % (Manual) Lymphocytes # (Manual) POC ABG pH POC ABG pCO2 POC ABG pO2 Sodium Potassium Chloride Carbon Dioxide BUN Glucose POC Glucose 272 H 383 H 345 H Hemoglobin A1c 08/22/16 21:14 MCH RDW Plt Count Lymphocytes % (Manual) Lymphocytes # (Manual) POC ABG pH POC ABG pCO2 POC ABG pO2 Sodium Potassium Chloride Carbon Dioxide BUN Glucose POC Glucose 337 H Hemoglobin A1c Chest x-ray: report reviewed (No acute cradiopulmonary process reported. Unable to pull the filims on the computer.)
[2016-08-23] MEDS: DUONEB 0.5 MG-3 MG/3 ML SOLN IH SCH ×4 (01:55→20:30)
[2016-08-23 06:59] LABS: Basophils % (Auto) 0.2 % (0.0-1.8); Hematocrit 45.3 % (35.5-45.6); Mean Corpuscular HGB Conc 33 % (32-34); Mean Corpuscular Hemoglobin 27 pg (28-32); Mean Corpuscular Volume 83 fl (84-94); Platelet Count 125 K/mm3 (140-440); Red Blood Count 5.46 M/mm3 (3.65-5.03); Red Cell Distribution Width 15.5 % (13.2-15.2); White Blood Count 9.3 K/mm3 (4.5-11.0)
[2016-08-23 07:16] LABS: BUN/Creatinine Ratio 19.09; Blood Urea Nitrogen 21 mg/dL (9-20); Carbon Dioxide 31 mmol/L (22-30); Chloride 99.4 mmol/L (98-107); Glucose 265 mg/dL (75-100); Sodium 138 mmol/L (137-145)
[2016-08-23 07:23] LABS: Anion Gap 12 mmol/L
--- NOTE | 2016-08-23 09:26 | Query- Renal Failure ---
Yevgeniy Levine Date:_08/23/16 Premises Technician/CDS:Bethany Pena Phone#:_[phone] Exercise your independent professional judgment when responding to query. Questions asked do not imply a particular answer is desired or expected. We greatly appreciate your clarification on this issue. Clinical Documentation States: 70 Y/O male admitted on 08/20/16 with Hx. of COPD, DM, HTN presented after being found to be confused and somnolent for the past few days. Patient was found to be in DKA. Clinical Findings Show: 08/20 1/ Creat: 1.8 1.1 BUN: 31 21 Please clarify if you mean: Acute Renal Failure with or due to: [ ] Tubular Necrosis [ ] Medullary Necrosis [ ] Vasomotor Nephropathy [ ] Shock Kidney [ ] Tubular Nephrosis [ ] Renal Tubular Stasis [ ] Cortical Necrosis [ ] Acute Renal Failure (unspecified) [ ] Lower Tubular Nephrosis [ ] Other: [ ] Not Applicable Present on Admission: [ ] Yes (Y) [ ] Clinically undeterminable (W) [ ] No (N) Please also document response in your Progress Notes and/or Discharge Summary and indicate if the condition was present on admission. MTDD
[2016-08-23] MEDS: celeXA PO SCH (09:37)
[2016-08-23] MEDS: K-DUR PO SCH (09:38)
[2016-08-23] MEDS: HCTZ PO SCH (09:38)
[2016-08-23] MEDS: DELTASONE PO SCH (09:38)
[2016-08-23] MEDS: COZAAR PO SCH (09:40)
[2016-08-23] MEDS: NACL 0.45% 1000 ML 1,000 ML IV SCH (09:43)
[2016-08-23] MEDS: PEPCID PO SCH ×2 (09:47→22:46)
[2016-08-23] MEDS: PULMICORT IH SCH ×2 (10:54→20:29)
[2016-08-23] MEDS: BROVANA NEBU IH SCH ×2 (10:55→20:28)
--- NOTE | 2016-08-23 14:22 | Progress Note ---
Assessment and Plan Assessment and plan: 1. Acute COPD exacerbation- Continue bronchodilators; po prednisone;continue O2 for supportive care and wean as tolerated. 2. DM 2 - uncontrolled with resolved DKA- increase current insulin regime 35 units 70/30 insulin; monitor accuchek and adjust insulin as needed. 3. Hypertension. Continue antihypertensive medications. 4. Thrombocytopenia- improving; cont to monitor 5. DVT prophylaxis. SCDs; heparin / lovenox C/U due to thrombocytopenia History Interval history: folLow up for COPD exacerbation PAtient seen on the bedside, shortness of breath is improving; no complaints; drowsy but arousable Hospitalist Physical - Constitutional Vitals: Temp Pulse Resp BP Pulse Ox 98.4 F 87 16 112/72 94 08/23/16 10:54 08/23/16 10:54 08/23/16 10:54 08/23/16 10:54 08/23/16 10:56 General appearance: Present: no acute distress, well-nourished - EENT Eyes: Present: PERRL, EOM intact. Absent: scleral icterus, conjunctival injection ENT: hearing intact, clear oral mucosa, no oropharyngeal erythema, no poor dentition - Neck Neck: Present: supple, normal ROM. Absent: enlarged thyroid, masses or JVD - Respiratory Respiratory effort: normal Respiratory: bilateral: diminished, wheezing, negative: rales, rhonchi - Cardiovascular Rhythm: regular Heart Sounds: Present: S1 & S2. Absent: gallop - Extremities Extremities: no ischemia, pulses intact, pulses symmetrical, No edema Peripheral Pulses: within normal limits - Abdominal General gastrointestinal: soft, non-tender, non-distended - Integumentary Integumentary: Present: clear - Psychiatric Psychiatric: appropriate mood/affect, intact judgment & insight - Neurologic Neurologic: CNII-XII intact, moves all extremities Results - Labs CBC & Chem 7: 08/23/16 06:18 08/23/16 06:18 Labs: Laboratory Last Values WBC 9.3 K/mm3 (4.5-11.0) 08/23/16 06:18 RBC 5.46 M/mm3 (3.65-5.03) H 08/23/16 06:18 Hgb 15.0 gm/dl (11.8-15.2) D 08/23/16 06:18 Hct 45.3 % (35.5-45.6) D 08/23/16 06:18 MCV 83 fl (84-94) L 08/23/16 06:18 MCH 27 pg (28-32) L 08/23/16 06:18 MCHC 33 % (32-34) 08/23/16 06:18 RDW 15.5 % (13.2-15.2) H 08/23/16 06:18 Plt Count 125 K/mm3 (140-440) L 08/23/16 06:18 Lymph % (Auto) 14.2 % (13.4-35.0) 08/23/16 06:18 [place] % (Auto) 9.2 % (0.0-7.3) H 08/23/16 06:18 Eos % (Auto) 0.0 % (0.0-4.3) 08/23/16 06:18 Baso % (Auto) 0.2 % (0.0-1.8) 08/23/16 06:18 Lymph # 1.3 K/mm3 (1.2-5.4) 08/23/16 06:18 [place] # 0.9 K/mm3 (0.0-0.8) H 08/23/16 06:18 Eos # 0.0 K/mm3 (0.0-0.4) 08/23/16 06:18 Baso # 0.0 K/mm3 (0.0-0.1) 08/23/16 06:18 Add Manual Diff Complete 08/21/16 04:41 Total Counted 100 08/21/16 04:41 Seg Neutrophils % 76.4 % (40.0-70.0) H 08/23/16 06:18 Seg Neuts % (Manual) 54.0 % (40.0-70.0) 08/21/16 04:41 Band Neutrophils % 34.0 % 08/21/16 04:41 Lymphocytes % (Manual) 5.0 % (13.4-35.0) L 08/21/16 04:41 Reactive Lymphs % (Man) 0 % 08/21/16 04:41 Monocytes % (Manual) 7.0 % (0.0-7.3) 08/21/16 04:41 Eosinophils % (Manual) 0 % (0.0-4.3) 08/21/16 04:41 Basophils % (Manual) 0 % (0.0-1.8) 08/21/16 04:41 Metamyelocytes % 0 % 08/21/16 04:41 Myelocytes % 0 % 08/21/16 04:41 Promyelocytes % 0 % 08/21/16 04:41 Blast Cells % 0 % 08/21/16 04:41 Nucleated RBC % Not Reportable 08/21/16 04:41 Seg Neutrophils # 7.1 K/mm3 (1.8-7.7) 08/23/16 06:18 Seg Neutrophils # Man 4.6 K/mm3 (1.8-7.7) 08/21/16 04:41 Band Neutrophils # 2.9 K/mm3 08/21/16 04:41 Lymphocytes # (Manual) 0.4 K/mm3 (1.2-5.4) L 08/21/16 04:41 Abs React Lymphs (Man) 0.0 K/mm3 08/21/16 04:41 Monocytes # (Manual) 0.6 K/mm3 (0.0-0.8) 08/21/16 04:41 Eosinophils # (Manual) 0.0 K/mm3 (0.0-0.4) 08/21/16 04:41 Basophils # (Manual) 0.0 K/mm3 (0.0-0.1) 08/21/16 04:41 Metamyelocytes # 0.0 K/mm3 08/21/16 04:41 Myelocytes # 0.0 K/mm3 08/21/16 04:41 Promyelocytes # 0.0 K/mm3 08/21/16 04:41 Blast Cells # 0.0 K/mm3 08/21/16 04:41 WBC Morphology Not Reportable 08/21/16 04:41 Hypersegmented Neuts Not Reportable 08/21/16 04:41 Hyposegmented Neuts Not Reportable 08/21/16 04:41 Hypogranular Neuts Not Reportable 08/21/16 04:41 Smudge Cells Not Reportable 08/21/16 04:41 Toxic Granulation Not Reportable 08/21/16 04:41 Toxic Vacuolation Not Reportable 08/21/16 04:41 Dohle Bodies Not Reportable 08/21/16 04:41 Pelger-Huet Anomaly Not Reportable 08/21/16 04:41 Gabi Rods Not Reportable 08/21/16 04:41 Platelet Estimate Consistent w auto 08/21/16 04:41 Clumped Platelets Not Reportable 08/21/16 04:41 Plt Clumps, EDTA Not Reportable 08/21/16 04:41 Large Platelets Not Reportable 08/21/16 04:41 Giant Platelets Not Reportable 08/21/16 04:41 Platelet Satelliting Not Reportable 08/21/16 04:41 Plt Morphology Comment Not Reportable 08/21/16 04:41 RBC Morphology Not Reportable 08/21/16 04:41 Dimorphic RBCs Not Reportable 08/21/16 04:41 Polychromasia Not Reportable 08/21/16 04:41 Hypochromasia 1+ 08/21/16 04:41 Poikilocytosis Not Reportable 08/21/16 04:41 Anisocytosis 1+ 08/21/16 04:41 Microcytosis Not Reportable 08/21/16 04:41 Macrocytosis Not Reportable 08/21/16 04:41 Spherocytes Not Reportable 08/21/16 04:41 Pappenheimer Bodies Not Reportable 08/21/16 04:41 Sickle Cells Not Reportable 08/21/16 04:41 Target Cells Not Reportable 08/21/16 04:41 Tear Drop Cells Not Reportable 08/21/16 04:41 Ovalocytes Not Reportable 08/21/16 04:41 Helmet Cells Not Reportable 08/21/16 04:41 [place] Bodies Not Reportable 08/21/16 04:41 [place] Rings Not Reportable 08/21/16 04:41 Gwen Cells Not Reportable 08/21/16 04:41 Bite Cells Not Reportable 08/21/16 04:41 Crenated Cell Not Reportable 08/21/16 04:41 Elliptocytes Not Reportable 08/21/16 04:41 Acanthocytes (Spur) Not Reportable 08/21/16 04:41 Rouleaux Not Reportable 08/21/16 04:41 Hemoglobin C Crystals Not Reportable 08/21/16 04:41 Schistocytes Not Reportable 08/21/16 04:41 Malaria parasites Not Reportable 08/21/16 04:41 Arturo Bodies Not Reportable 08/21/16 04:41 Hem Pathologist Commnt No 08/21/16 04:41 POC ABG pH 7.294 (7.35-7.45) L 08/21/16 15:00 POC ABG pCO2 53.7 (35-45) H 08/21/16 15:00 POC ABG pO2 76 (80-105) L 08/21/16 15:00 POC ABG HCO3 26.1 08/21/16 15:00 POC ABG Total CO2 28 08/21/16 15:00 POC ABG O2 Sat 93 08/21/16 15:00 POC ABG Base Excess 0 08/21/16 15:00 VBG pH 7.309 (7.320-7.420) L 08/20/16 13:26 FiO2 28 % 08/21/16 15:00 Sodium 138 mmol/L (137-145) 08/23/16 06:18 Potassium 4.0 mmol/L (3.6-5.0) 08/23/16 06:18 Chloride 99.4 mmol/L (98-107) 08/23/16 06:18 Carbon Dioxide 31 mmol/L (22-30) H D 08/23/16 06:18 Anion Gap 12 mmol/L 08/23/16 06:18 BUN 21 mg/dL (9-20) H 08/23/16 06:18 Creatinine 1.1 mg/dL (0.8-1.5) 08/23/16 06:18 Estimated GFR > 60 ml/min 08/23/16 06:18 BUN/Creatinine Ratio 19.09 % 08/23/16 06:18 Glucose 265 mg/dL (75-100) H 08/23/16 06:18 POC Glucose 279 (70-105) H 08/23/16 05:48 Hemoglobin A1c 14.8 % (4-6) H 08/20/16 20:11 Calcium 8.0 mg/dL (8.4-10.2) L 08/23/16 06:18 Phosphorus 3.7 mg/dL (2.5-4.5) 08/20/16 20:11 Magnesium 2.1 mg/dL (1.7-2.3) 08/20/16 20:11 Urine Color Yellow (Yellow) 08/20/16 13:00 Urine Turbidity Clear (Clear) 08/20/16 13:00 Urine pH 5.0 (5.0-7.0) 08/20/16 13:00 Ur Specific [place] 1.025 (1.003-1.030) 08/20/16 13:00 Urine Protein 100 mg/dl mg/dL (Negative) 08/20/16 13:00 Urine Glucose (UA) >=500 mg/dL (Negative) 08/20/16 13:00 Urine Ketones Tr mg/dL (Negative) 08/20/16 13:00 Urine Blood Lg (Negative) 08/20/16 13:00 Urine Nitrite Neg (Negative) 08/20/16 13:00 Urine Bilirubin Neg (Negative) 08/20/16 13:00 Urine Urobilinogen < 2.0 mg/dL (<2.0) 08/20/16 13:00 Ur Leukocyte Esterase Neg (Negative) 08/20/16 13:00 Urine WBC (Auto) 2.0 /HPF (0.0-6.0) 08/20/16 13:00 Urine RBC (Auto) 4.0 /HPF (0.0-6.0) 08/20/16 13:00 Urine Mucus Few /HPF 08/20/16 13:00 Ketones 25.8 mg/dL (0.2-2.8) H 08/20/16 13:26 - Imaging and Cardiology Chest x-ray: report reviewed (no cardiopulmonary abn)
--- NOTE | 2016-08-23 22:18 | Progress Note ---
Assessment and Plan Patient sleeping on BIPAP at this time. BIPAP 12/5, rate 16, FIO2 30%. Tolerating good. O2 satuaration 94%. - Patient Problems (1) Chronic obstructive asthma with exacerbation Current Visit: No Status: Acute Plan to address problem: BIPAP and O2 supplementation. Albuterol/ atrovent aerosol treatments. Continue prednisone. (2) Acute and chronic respiratory failure ([id number]) Current Visit: Yes Status: Acute Plan to address problem: BIPAP16/6, rate 16, FIO2 30% Supplemental O2 3 litres,if patient is not on BIPAP. Continue albuterol/atrovent aerosol treatments Continue Prednisone. SCDs Famotadine. 08/23/16 Patient is on BIPAP 12/5, rate 16, FIO2 30% Tolerating good , O2 [id number]% (3) Sleep apnea Current Visit: Yes Status: Acute Plan to address problem: Possible sleep apnea. Patient obese,sleeping most of the time. Recommend sleep study as out patient. Subjective Date of service: 08/23/16 Interval history: Patient sleeping on BIPAP at this time. BIPAP 12/5, rate 16, FIO2 30%. Tolerating good. O2 satuaration 94%. Objective Vital Signs - 12hr 08/23/16 08/23/16 08/23/16 10:54 10:56 14:29 Temperature 98.4 F Pulse Rate Pulse Rate [ 86 Anterior Bilateral Throughout] Pulse Rate [ Bilateral] Pulse Rate [ 87 Right Radial] Respiratory 16 Rate Respiratory 18 Rate [Anterior Bilateral Throughout] Respiratory Rate [Bilateral ] Blood Pressure 112/72 [Left Arm] O2 Sat by Pulse 97 94 Oximetry 08/23/16 08/23/16 08/23/16 14:49 20:00 20:47 Temperature 98.5 F Pulse Rate Pulse Rate [ 91 H Anterior Bilateral Throughout] Pulse Rate [ 94 H Bilateral] Pulse Rate [ 91 H Right Radial] Respiratory 28 H Rate Respiratory 20 Rate [Anterior Bilateral Throughout] Respiratory 18 Rate [Bilateral ] Blood Pressure 118/67 [Left Arm] O2 Sat by Pulse 95 94 Oximetry 08/23/16 20:56 Temperature Pulse Rate 91 H Pulse Rate [ Anterior Bilateral Throughout] Pulse Rate [ Bilateral] Pulse Rate [ Right Radial] Respiratory 21 Rate Respiratory Rate [Anterior Bilateral Throughout] Respiratory Rate [Bilateral ] Blood Pressure [Left Arm] O2 Sat by Pulse 94 Oximetry Constitutional: no acute distress, asleep Eyes: non-icteric Neck: supple, no lymphadenopathy Ascultation: Bilateral: diminished breath sounds Cardiovascular: regular rate and rhythm Gastrointestinal: normoactive bowel sounds, soft, non-tender Integumentary: normal Extremities: no cyanosis, no edema Neurologic: non-focal exam, pupils equal and round, CN II-XII normal Psychiatric: depressed CBC and BMP: 08/23/16 06:18 08/23/16 06:18 ABG, PT/INR, D-dimer: ABG POC ABG pH 7.294 (7.35-7.45) L 08/21/16 15:00 POC ABG pCO2 53.7 (35-45) H 08/21/16 15:00 POC ABG pO2 76 (80-105) L 08/21/16 15:00 POC ABG HCO3 26.1 08/21/16 15:00 POC ABG Total CO2 28 08/21/16 15:00 POC ABG O2 Sat 93 08/21/16 15:00 Abnormal lab findings: Abnormal Labs 08/20/16 08/20/16 08/20/16 17:55 20:11 20:11 RBC MCV MCH RDW Plt Count [place] % (Auto) [place] # Seg Neutrophils % Lymphocytes % (Manual) Lymphocytes # (Manual) POC ABG pH POC ABG pCO2 POC ABG pO2 Sodium 136 L D Potassium Chloride 95.6 L Carbon Dioxide BUN 28 H Glucose 430 H POC Glucose 472 H Hemoglobin A1c 14.8 H Calcium 08/20/16 08/20/16 08/20/16 20:53 21:59 22:04 RBC MCV MCH RDW Plt Count [place] % (Auto) [place] # Seg Neutrophils % Lymphocytes % (Manual) Lymphocytes # (Manual) POC ABG pH POC ABG pCO2 POC ABG pO2 Sodium Potassium 6.2 H* D Chloride 97.7 L Carbon Dioxide BUN 28 H Glucose 426 H POC Glucose 374 H 368 H Hemoglobin A1c Calcium 08/20/16 08/21/16 08/21/16 23:04 00:01 00:44 RBC MCV MCH RDW Plt Count [place] % (Auto) [place] # Seg Neutrophils % Lymphocytes % (Manual) Lymphocytes # (Manual) POC ABG pH POC ABG pCO2 POC ABG pO2 Sodium Potassium Chloride Carbon Dioxide 20 L BUN 26 H Glucose 363 H POC Glucose 313 H 308 H Hemoglobin A1c Calcium 08/21/16 08/21/16 08/21/16 00:59 02:08 03:07 RBC MCV MCH RDW Plt Count [place] % (Auto) [place] # Seg Neutrophils % Lymphocytes % (Manual) Lymphocytes # (Manual) POC ABG pH POC ABG pCO2 POC ABG pO2 Sodium Potassium Chloride Carbon Dioxide BUN Glucose POC Glucose 276 H 259 H 238 H Hemoglobin A1c Calcium 08/21/16 08/21/16 08/21/16 04:08 04:41 04:41 RBC MCV MCH 27 L RDW 16.1 H Plt Count 97 L [place] % (Auto) [place] # Seg Neutrophils % Lymphocytes % (Manual) 5.0 L Lymphocytes # (Manual) 0.4 L POC ABG pH POC ABG pCO2 POC ABG pO2 Sodium Potassium Chloride Carbon Dioxide BUN 23 H Glucose 278 H POC Glucose 210 H Hemoglobin A1c Calcium 08/21/16 08/21/16 08/21/16 05:00 06:03 07:30 RBC MCV MCH RDW Plt Count [place] % (Auto) [place] # Seg Neutrophils % Lymphocytes % (Manual) Lymphocytes # (Manual) POC ABG pH POC ABG pCO2 POC ABG pO2 Sodium Potassium Chloride Carbon Dioxide BUN Glucose POC Glucose 211 H 208 H 222 H Hemoglobin A1c Calcium 08/21/16 08/21/16 08/21/16 08:16 09:22 09:58 RBC MCV MCH RDW Plt Count [place] % (Auto) [place] # Seg Neutrophils % Lymphocytes % (Manual) Lymphocytes # (Manual) POC ABG pH POC ABG pCO2 POC ABG pO2 Sodium Potassium Chloride Carbon Dioxide BUN Glucose POC Glucose 230 H 231 H 278 H Hemoglobin A1c Calcium 08/21/16 08/21/16 08/21/16 11:04 12:05 13:34 RBC MCV MCH RDW Plt Count [place] % (Auto) [place] # Seg Neutrophils % Lymphocytes % (Manual) Lymphocytes # (Manual) POC ABG pH POC ABG pCO2 POC ABG pO2 Sodium Potassium Chloride Carbon Dioxide BUN Glucose POC Glucose 257 H 281 H 252 H Hemoglobin A1c Calcium 08/21/16 08/21/16 08/21/16 15:00 15:31 22:08 RBC MCV MCH RDW Plt Count [place] % (Auto) [place] # Seg Neutrophils % Lymphocytes % (Manual) Lymphocytes # (Manual) POC ABG pH 7.294 L POC ABG pCO2 53.7 H POC ABG pO2 76 L Sodium Potassium Chloride Carbon Dioxide BUN Glucose POC Glucose 266 H 233 H Hemoglobin A1c Calcium 08/22/16 08/22/16 08/22/16 06:51 11:24 16:58 RBC MCV MCH RDW Plt Count [place] % (Auto) [place] # Seg Neutrophils % Lymphocytes % (Manual) Lymphocytes # (Manual) POC ABG pH POC ABG pCO2 POC ABG pO2 Sodium Potassium Chloride Carbon Dioxide BUN Glucose POC Glucose 272 H 383 H 345 H Hemoglobin A1c Calcium 08/22/16 08/23/16 08/23/16 21:14 05:48 06:18 RBC 5.46 H MCV 83 L MCH 27 L RDW 15.5 H Plt Count 125 L [place] % (Auto) 9.2 H [place] # 0.9 H Seg Neutrophils % 76.4 H Lymphocytes % (Manual) Lymphocytes # (Manual) POC ABG pH POC ABG pCO2 POC ABG pO2 Sodium Potassium Chloride Carbon Dioxide BUN Glucose POC Glucose 337 H 279 H Hemoglobin A1c Calcium 08/23/16 08/23/16 08/23/16 06:18 11:50 16:28 RBC MCV MCH RDW Plt Count [place] % (Auto) [place] # Seg Neutrophils % Lymphocytes % (Manual) Lymphocytes # (Manual) POC ABG pH POC ABG pCO2 POC ABG pO2 Sodium Potassium Chloride Carbon Dioxide 31 H D BUN 21 H Glucose 265 H POC Glucose 295 H 294 H Hemoglobin A1c Calcium 8.0 L 08/23/16 21:08 RBC MCV MCH RDW Plt Count [place] % (Auto) [place] # Seg Neutrophils % Lymphocytes % (Manual) Lymphocytes # (Manual) POC ABG pH POC ABG pCO2 POC ABG pO2 Sodium Potassium Chloride Carbon Dioxide BUN Glucose POC Glucose 314 H Hemoglobin A1c Calcium
[2016-08-24] MEDS: NACL 0.45% 1000 ML 1,000 ML IV SCH (03:59)
[2016-08-24 06:37] LABS: Basophils % (Auto) 0.2 % (0.0-1.8); Eosinophils % (Auto) 0.2 % (0.0-4.3); Hematocrit 43.5 % (35.5-45.6); Hemoglobin 14.3 gm/dl (11.8-15.2); Mean Corpuscular HGB Conc 33 % (32-34); Mean Corpuscular Hemoglobin 27 pg (28-32); Mean Corpuscular Volume 82 fl (84-94); Platelet Count 119 K/mm3 (140-440); Red Blood Count 5.29 M/mm3 (3.65-5.03); Red Cell Distribution Width 15.9 % (13.2-15.2); White Blood Count 7.8 K/mm3 (4.5-11.0)
[2016-08-24 06:49] LABS: Anion Gap 15 mmol/L; BUN/Creatinine Ratio 17.77; Blood Urea Nitrogen 16 mg/dL (9-20); Calcium 8.1 mg/dL (8.4-10.2); Carbon Dioxide 28 mmol/L (22-30); Chloride 96.1 mmol/L (98-107); Glucose 228 mg/dL (75-100); Potassium 3.3 mmol/L (3.6-5.0); Sodium 136 mmol/L (137-145)
--- NOTE | 2016-08-24 07:41 | Query- Renal Failure ---
Dear Date:_08/24/16 Hard Candy Batch Mixer/CDS:Bethany Pena Phone#:[phone] Exercise your independent professional judgment when responding to query. Questions asked do not imply a particular answer is desired or expected. We greatly appreciate your clarification on this issue. Clinical Documentation States: 70 Y/O male admitted on 08/20/16 with Hx. of COPD, DM, HTN presented after being found to be confused and somnolent for the past few days. Patient was found to be in DKA. Clinical Findings Show: 08/20 1/ Creat: 1.8 1.1 BUN: 31 21 Please clarify if you mean: Acute Renal Failure with or due to: [ ] Tubular Necrosis [ ] Medullary Necrosis [x ] Vasomotor Nephropathy [ ] Shock Kidney [ ] Tubular Nephrosis [ ] Renal Tubular Stasis [ ] Cortical Necrosis [ ] Acute Renal Failure (unspecified) [ ] Lower Tubular Nephrosis [ ] Other: [ ] Not Applicable Present on Admission: [x ] Yes (Y) [ ] Clinically undeterminable (W) [ ] No (N) Please also document response in your Progress Notes and/or Discharge Summary and indicate if the condition was present on admission. MTDD
[2016-08-24] MEDS ORDERED: K-DUR PO ONE (08:00)
[2016-08-24] MEDS: PULMICORT IH SCH (08:19)
[2016-08-24] MEDS: BROVANA NEBU IH SCH (08:19)
[2016-08-24] MEDS: DUONEB 0.5 MG-3 MG/3 ML SOLN IH SCH ×3 (08:21→14:53)
--- NOTE | 2016-08-24 09:12 | Discharge Summary ---
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 Chronic microvascular ischemic disease Chest x-ray-no acute process Hospital course: Mr. Adams is a 70-year-old man who presented to the emergency room with altered mental status. He was diagnosed as metabolic encephalopathy secondary to diabetic ketoacidosis. He was started on insulin infusion and admitted to the ICU. He was subsequently transitioned to subcutaneous insulin once DKA was resolved transferred to the medical floor. He was also treated for acute on chronic respiratory failure secondary to COPD. He was also seen by the line haul driver while he was here. Condition at discharge-stable 31 minutes spent preparing discharge Disposition: DISCHARGED TO HOME OR SELFCARE - Discharge Diagnoses (1) Acute and chronic respiratory failure ([id number]) Status: Acute (2) COPD (chronic obstructive pulmonary disease) Status: Acute Qualifiers: COPD type: unspecified COPD Qualified Code(s): J44.9 - Chronic obstructive pulmonary disease, unspecified (3) Diabetic ketoacidosis Status: Acute Core Measure Documentation - Palliative Care Palliative Care/ Comfort Measures: Not Applicable - Core Measures Any of the following diagnoses?: none Exam - Constitutional Vitals: Temp Pulse Resp BP Pulse Ox 97.8 F 72 18 120/79 96 08/24/16 07:55 08/24/16 07:55 08/24/16 07:55 08/24/16 07:55 08/24/16 07:55 General appearance: Present: no acute distress - EENT Eyes: Present: PERRL, EOM intact. Absent: scleral icterus, conjunctival injection ENT: hearing intact, clear oral mucosa - Neck Neck: Present: supple - Respiratory Respiratory effort: normal Respiratory: negative: diminished, rales, rhonchi, wheezing - Cardiovascular Rhythm: regular Heart Sounds: Present: S1 & S2. Absent: gallop - Extremities Extremities: no ischemia, pulses intact, pulses symmetrical, No edema Peripheral Pulses: within normal limits - Abdominal General gastrointestinal: Present: soft, non-tender, non-distended, normal bowel sounds Male genitourinary: Present: deferred - Rectal Rectal Exam: deferred - Integumentary Integumentary: Present: clear - Musculoskeletal Musculoskeletal: strength equal bilaterally - Psychiatric Psychiatric: appropriate mood/affect, intact judgment & insight, cooperative - Neurologic Neurologic: CNII-XII intact, moves all extremities Plan Activity: no restrictions Diet: low cholesterol, low salt, diabetic Special Instructions: home oxygen via (nc) Additional Instructions: continue home oxygen and nocturnal BIPAP Follow up with: PRIMARY CARE, [Primary Care Provider] - 3-5 Days Prescriptions: Insulin NPH/Regular [NovoLIN 70/30] 35 unit SUB-Q BIDDIAB #1 units Prednisone [predniSONE 10 mg (6-Day Pack, 21 Tabs)] 10 mg PO .TAPER #1 tab.ds.pk
[2016-08-24] MEDS: K-DUR PO SCH (09:30)
[2016-08-24] MEDS: DELTASONE PO SCH (09:30)
[2016-08-24] MEDS: COZAAR PO SCH (09:31)
[2016-08-24] MEDS: PEPCID PO SCH (09:31)
[2016-08-24] MEDS: celeXA PO SCH (09:31)
[2016-08-24] MEDS: HCTZ PO SCH (09:33)
[2016-08-24 10:31] VITALS: BP 102/52
[2016-08-24 12:35] LABS: ISTAT Base Excess 5; ISTAT DEVICE 0; ISTAT HCO3 29.2; ISTAT PCO2 43.4 (35-45); ISTAT PH 7.436 (7.35-7.45); ISTAT PO2 42 (80-105); ISTAT SO2 79; ISTAT TCO2 30
--- NOTE | 2016-08-24 17:12 | Progress Note ---
Assessment and Plan Patient alert,awake and resting on 3 litres O2. O2 satuaration 94%. Patient may be dischared today. Patient told me, he has Home O2 and BIPAP at home. Can come to the office as out patient for follow up on pulmonary and sleep problems. Stressed the importance of follow up. - Patient Problems (1) Chronic obstructive asthma with exacerbation Current Visit: No Status: Acute Plan to address problem: BIPAP and O2 supplementation. Albuterol/ atrovent aerosol treatments. Continue prednisone. (2) Acute and chronic respiratory failure ([id number]) Current Visit: Yes Status: Acute Plan to address problem: BIPAP16/6, rate 16, FIO2 30% Supplemental O2 3 litres,if patient is not on BIPAP. Continue albuterol/atrovent aerosol treatments Continue Prednisone. SCDs Famotadine. 08/23/16 Patient is on BIPAP 12/5, rate 16, FIO2 30% Tolerating good , O2 [id number]% (3) Sleep apnea Current Visit: Yes Status: Acute Plan to address problem: Possible sleep apnea. Patient obese,sleeping most of the time. Recommend sleep study as out patient. Subjective Date of service: 08/24/16 Interval history: Patient alert,awake and resting on 3 litres O2. O2 satuaration 94%. Patient may be dischared today. Patient told me, he has Home O2 and BIPAP at home. Objective Vital Signs - 12hr 08/24/16 08/24/16 08/24/16 07:55 09:31 10:28 Temperature 97.8 F 98.9 F Pulse Rate 72 Pulse Rate [ 72 Left Radial] Pulse Rate [ 82 Right Radial] Respiratory 18 22 Rate Blood Pressure 120/79 Blood Pressure 120/79 [Left Arm] Blood Pressure 102/52 [Right Arm] O2 Sat by Pulse 96 Oximetry Constitutional: no acute distress, alert Eyes: non-icteric Neck: supple, no lymphadenopathy Ascultation: Bilateral: diminished breath sounds Cardiovascular: regular rate and rhythm Gastrointestinal: normoactive bowel sounds, soft, non-tender Integumentary: normal Extremities: no cyanosis, no edema Neurologic: non-focal exam, pupils equal and round, CN II-XII normal Psychiatric: depressed CBC and BMP: 08/24/16 06:10 08/24/16 06:10 ABG, PT/INR, D-dimer: ABG POC ABG pH 7.436 (7.35-7.45) 08/24/16 12:25 POC ABG pCO2 43.4 (35-45) 08/24/16 12:25 POC ABG pO2 42 (80-105) L 08/24/16 12:25 POC ABG HCO3 29.2 08/24/16 12:25 POC ABG Total CO2 30 08/24/16 12:25 POC ABG O2 Sat 79 08/24/16 12:25 Abnormal lab findings: Abnormal Labs 08/20/16 08/20/16 08/20/16 17:55 20:11 20:11 RBC MCV MCH RDW Plt Count Ware % (Auto) Ware # Seg Neutrophils % Lymphocytes % (Manual) Lymphocytes # (Manual) POC ABG pH POC ABG pCO2 POC ABG pO2 Sodium 136 L D Potassium Chloride 95.6 L Carbon Dioxide BUN 28 H Glucose 430 H POC Glucose 472 H Hemoglobin A1c 14.8 H Calcium 08/20/16 08/20/16 08/20/16 20:53 21:59 22:04 RBC MCV MCH RDW Plt Count Ware % (Auto) Ware # Seg Neutrophils % Lymphocytes % (Manual) Lymphocytes # (Manual) POC ABG pH POC ABG pCO2 POC ABG pO2 Sodium Potassium 6.2 H* D Chloride 97.7 L Carbon Dioxide BUN 28 H Glucose 426 H POC Glucose 374 H 368 H Hemoglobin A1c Calcium 08/20/16 08/21/16 08/21/16 23:04 00:01 00:44 RBC MCV MCH RDW Plt Count Ware % (Auto) Ware # Seg Neutrophils % Lymphocytes % (Manual) Lymphocytes # (Manual) POC ABG pH POC ABG pCO2 POC ABG pO2 Sodium Potassium Chloride Carbon Dioxide 20 L BUN 26 H Glucose 363 H POC Glucose 313 H 308 H Hemoglobin A1c Calcium 08/21/16 08/21/16 08/21/16 00:59 02:08 03:07 RBC MCV MCH RDW Plt Count Ware % (Auto) Ware # Seg Neutrophils % Lymphocytes % (Manual) Lymphocytes # (Manual) POC ABG pH POC ABG pCO2 POC ABG pO2 Sodium Potassium Chloride Carbon Dioxide BUN Glucose POC Glucose 276 H 259 H 238 H Hemoglobin A1c Calcium 08/21/16 08/21/16 08/21/16 04:08 04:41 04:41 RBC MCV MCH 27 L RDW 16.1 H Plt Count 97 L Ware % (Auto) Ware # Seg Neutrophils % Lymphocytes % (Manual) 5.0 L Lymphocytes # (Manual) 0.4 L POC ABG pH POC ABG pCO2 POC ABG pO2 Sodium Potassium Chloride Carbon Dioxide BUN 23 H Glucose 278 H POC Glucose 210 H Hemoglobin A1c Calcium 08/21/16 08/21/16 08/21/16 05:00 06:03 07:30 RBC MCV MCH RDW Plt Count Ware % (Auto) Ware # Seg Neutrophils % Lymphocytes % (Manual) Lymphocytes # (Manual) POC ABG pH POC ABG pCO2 POC ABG pO2 Sodium Potassium Chloride Carbon Dioxide BUN Glucose POC Glucose 211 H 208 H 222 H Hemoglobin A1c Calcium 08/21/16 08/21/16 08/21/16 08:16 09:22 09:58 RBC MCV MCH RDW Plt Count Ware % (Auto) Ware # Seg Neutrophils % Lymphocytes % (Manual) Lymphocytes # (Manual) POC ABG pH POC ABG pCO2 POC ABG pO2 Sodium Potassium Chloride Carbon Dioxide BUN Glucose POC Glucose 230 H 231 H 278 H Hemoglobin A1c Calcium 08/21/16 08/21/16 08/21/16 11:04 12:05 13:34 RBC MCV MCH RDW Plt Count Ware % (Auto) Ware # Seg Neutrophils % Lymphocytes % (Manual) Lymphocytes # (Manual) POC ABG pH POC ABG pCO2 POC ABG pO2 Sodium Potassium Chloride Carbon Dioxide BUN Glucose POC Glucose 257 H 281 H 252 H Hemoglobin A1c Calcium 08/21/16 08/21/16 08/21/16 15:00 15:31 22:08 RBC MCV MCH RDW Plt Count Ware % (Auto) Ware # Seg Neutrophils % Lymphocytes % (Manual) Lymphocytes # (Manual) POC ABG pH 7.294 L POC ABG pCO2 53.7 H POC ABG pO2 76 L Sodium Potassium Chloride Carbon Dioxide BUN Glucose POC Glucose 266 H 233 H Hemoglobin A1c Calcium 08/22/16 08/22/16 08/22/16 06:51 11:24 16:58 RBC MCV MCH RDW Plt Count Ware % (Auto) Ware # Seg Neutrophils % Lymphocytes % (Manual) Lymphocytes # (Manual) POC ABG pH POC ABG pCO2 POC ABG pO2 Sodium Potassium Chloride Carbon Dioxide BUN Glucose POC Glucose 272 H 383 H 345 H Hemoglobin A1c Calcium 08/22/16 08/23/16 08/23/16 21:14 05:48 06:18 RBC 5.46 H MCV 83 L MCH 27 L RDW 15.5 H Plt Count 125 L Ware % (Auto) 9.2 H Ware # 0.9 H Seg Neutrophils % 76.4 H Lymphocytes % (Manual) Lymphocytes # (Manual) POC ABG pH POC ABG pCO2 POC ABG pO2 Sodium Potassium Chloride Carbon Dioxide BUN Glucose POC Glucose 337 H 279 H Hemoglobin A1c Calcium 08/23/16 08/23/16 08/23/16 06:18 11:50 16:28 RBC MCV MCH RDW Plt Count Ware % (Auto) Ware # Seg Neutrophils % Lymphocytes % (Manual) Lymphocytes # (Manual) POC ABG pH POC ABG pCO2 POC ABG pO2 Sodium Potassium Chloride Carbon Dioxide 31 H D BUN 21 H Glucose 265 H POC Glucose 295 H 294 H Hemoglobin A1c Calcium 8.0 L 08/23/16 08/24/16 08/24/16 21:08 05:39 06:10 RBC 5.29 H MCV 82 L MCH 27 L RDW 15.9 H Plt Count 119 L Ware % (Auto) 10.5 H Ware # Seg Neutrophils % 72.2 H Lymphocytes % (Manual) Lymphocytes # (Manual) POC ABG pH POC ABG pCO2 POC ABG pO2 Sodium Potassium Chloride Carbon Dioxide BUN Glucose POC Glucose 314 H 225 H Hemoglobin A1c Calcium 08/24/16 08/24/16 08/24/16 06:10 11:14 12:25 RBC MCV MCH RDW Plt Count Ware % (Auto) Ware # Seg Neutrophils % Lymphocytes % (Manual) Lymphocytes # (Manual) POC ABG pH POC ABG pCO2 POC ABG pO2 42 L Sodium 136 L Potassium 3.3 L Chloride 96.1 L Carbon Dioxide BUN Glucose 228 H POC Glucose 279 H Hemoglobin A1c Calcium 8.1 L
== END 2016-08-24 19:23 | disposition home or self-care (01) | DRG 637 ==
LOC: ED 12:31 → 3A 17:16 → CC1 20:29 → 3A 08-21 21:20
PROVIDERS: ADMIT Internal Medicine; ATTEND Hospitalist
PROC: 4A033R1 Measurement of Arterial Saturation, Peripheral, Percutaneous Approach (ICD-10-PCS; principal; 2016-08-21)
PROC: 4A033R1 Measurement of Arterial Saturation, Peripheral, Percutaneous Approach (ICD-10-PCS; 2016-08-24)
DX: E13.10 Other specified diabetes mellitus with ketoacidosis without coma (principal); J96.21 Acute and chronic respiratory failure with hypoxia; N17.0 Acute kidney failure with tubular necrosis; G93.41 Metabolic encephalopathy; J44.1 Chronic obstructive pulmonary disease with (acute) exacerbation; F32.9 Major depressive disorder, single episode, unspecified; E66.01 Morbid (severe) obesity due to excess calories; D69.6 Thrombocytopenia, unspecified; I10 Essential (primary) hypertension; G47.30 Sleep apnea, unspecified; Z99.81 Dependence on supplemental oxygen; Z79.899 Other long term (current) drug therapy; Z82.49 Family history of ischemic heart disease and other diseases of the circulatory system; Z83.3 Family history of diabetes mellitus; Z68.35 Body mass index [BMI] 35.0-35.9, adult; Z79.4 Long term (current) use of insulin; Z87.891 Personal history of nicotine dependence
CPT/HCPCS: 36415; 36600; 70450; 71010; 80048; 81001; 82010; 82803; 82805; 82962; 83036; 83735; 84100; 85007; 85025; 93005; 93010; 94640; 94660; 94760; 96361; 96374; 96376; J1815; J2920; J7030; J7512